=== PATIENT | female | born 1965 | race Caucasian/White ===

== ENCOUNTER 2020-06-26 11:05 | Emergency (ER) | payer OTHER, SELFPAY ==
[2020-06-26 12:57] VITALS: BP 133/76; PULSE 70; RESP 15; TEMP 37.3; O2SAT 99; BMI 30.2
--- NOTE | 2020-06-26 13:09 | CT_ITS ---
EXAMINATION: CT ABDOMEN AND PELVIS WITHOUT CONTRAST CLINICAL INFORMATION: Bilateral flank pain. COMPARISON: January 25, 2020 TECHNIQUE: Multidetector volumetric imaging was performed from the superior aspect of the liver through the pubic symphysis. Sagittal and coronal reformatted images were obtained on the technologist's workstation. This CT examination was performed using dose optimization techniques as appropriate, variously including the following: *Automated exposure control *Adjustment of mA and/or kV according to patient size (this includes techniques or standardized protocols for targeted exams where dose is matched to indication/reason for exam; i.e. extremities or head) *Use of iterative reconstruction technique DLP: 557 mGy-cm FINDINGS: LUNG BASES: The visualized lung bases are unremarkable. No pleural or pericardial effusion. LIVER, GALLBLADDER, AND BILIARY TREE: The liver is normal in size, shape, and attenuation. No focal hepatic lesion or biliary ductal dilatation is present. Status post cholecystectomy. PANCREAS: Unremarkable. SPLEEN: Unremarkable. ADRENAL GLANDS: Unremarkable. KIDNEYS AND URETERS: The kidneys are normal in size, shape, and attenuation. There is a 1.1 cm upper pole cyst of the left kidney. No hydronephrosis, hydroureter, or calculi seen. No perinephric stranding. BLADDER: Unremarkable. GASTROINTESTINAL TRACT: The small and large bowel are unremarkable. No free air or free fluid. The appendix is unremarkable. ABDOMINAL WALL: No significant hernia is appreciated. LYMPH NODES: No lymphadenopathy appreciated. VASCULAR: Unremarkable. PELVIC VISCERA: Unremarkable. OSSEOUS STRUCTURES: There is bilateral sclerosis of the sacroiliac joints without fusion or widening as well as facet arthropathy L5-S1 bilaterally. No suspicious destructive bony lesions. IMPRESSION: 1.1 cm left renal upper pole cyst. No evidence of obstructive uropathy. Bilateral sacroiliac joint sclerosis and facet arthropathy L5-S1.
--- NOTE | 2020-06-26 13:11 | ED_ITS ---
HPI - Abdominal Pain General Chief Complaint: Abdominal Pain Stated Complaint: BACK PAIN, LOWER ABD PAIN Time Seen by Provider: 06/26/20 12:49 Source: patient Mode of arrival: ambulatory Limitations: no limitations History of Present Illness HPI narrative: 55 y/o female presenting with 3 days of lower abdominal pain and low back pain. This is associated with intermittent fever at home and mild discomfort while urinating. She also reports nausea but no vomiting or diarrhea. She has taken Tylenol with no improvement in the pain. MD elicited complaint: abdominal pain and flank pain Onset (ago): day(s) (3) Pain Consistency: constant Location: L flank, R flank and suprapubic Severity: moderate Quality: aching Radiation: suprapubic, L flank and R flank Migration to: no migration Exacerbating factors: nothing Associated symptoms: nausea, fever, chills and dysuria Related Data Previous Rx's Medication Instructions Recorded acetaminophen [Tylenol Arthritis 650 mg PO Q8H PRN #30 tab 06/26/20 Pain] cephalexin [Keflex] 500 mg PO QID #20 cap 06/26/20 cyclobenzaprine 10 mg PO TID PRN #10 tab 06/26/20 Allergies Allergy/AdvReac Type Severity Reaction Status Date / Time No Known Allergies Allergy Verified 06/26/20 13:03 [No Known Allergies*] Review of Systems Review of Systems Constitutional: + Fever, + Chills ENT/Mouth: No sore throat, No Rhinorrhea, No Swallowing Difficulty Eyes: No Eye Pain, No Swelling, No Redness Cardiovascular: No Chest Pain, No SOB, No Orthopnea, No Edema Respiratory: No Cough, No Sputum, No Wheezing, No dyspnea Gastrointestinal: + Nausea, No Vomiting, No Diarrhea, + abdominal Pain, No Hematochezia, No Melena Genitourinary: + Dysuria, No Urinary Frequency, No Hematuria Musculoskeletal: No joint pain, + Myalgias Skin: No Skin Lesions, No rash Neuro: No Weakness, No Numbness, No Dizziness, No Headache Psych: No Anxiety/Panic, No Depression Heme/Lymph: No Bruising, No Lymphadenopathy Endocrine: No Polyuria, No Polydipsia Physical Exam Vital Signs: Vital Signs: Vital Signs Temp Pulse Resp BP Pulse Ox 06/26/20 16:19 98.9 F 74 18 143/85 H 98 06/26/20 12:57 99.2 F 70 15 133/76 99 Body Mass Index 30.2 Appearance: Alert. Oriented X3. No acute distress. Eyes: Pupils equal, round and reactive to light. ENT: Pharynx normal. Neck: Normal inspection. Neck supple. CVS: Normal heart rate and rhythm. Pulses normal. Respiratory: No respiratory distress. Breath sounds normal. Abdomen: Soft, lower abdominal tenderness, bilateral CVA tenderness +BS x4 Skin: Skin warm and dry. Normal skin color. Normal skin turgor. No rashes. Extremities: No lower extremity edema. Neuro: Oriented X 3. No motor deficit. No sensory deficit. Course Course Course Narrative: 55 y/o female with lower abdominal pain, dysuria, bilateral flank pain - concern for possible pyelonephritis, kidney stone, colitis. Reevaluation(s) Reevaluation #1: No fever or elevated WBC. UA still pending. CT scan showed 1 cm left renal upper pole cyst. No evidence of obstructive uropathy. Bilateral sacr oiliac joint sclerosis and facet arthropathy L5-S1. Low back pain is likely due to this. Suspect uncomplicated UTI based on dysuria complaint, awaiting UA. Reevaluation #2: UA positive. will treat with Keflex for uncomplicated UTI. Stable for d/c. MDM - Abdominal Pain MDM Narrative Medical decision making narrative: UTI, pyelo, kidney stones Differential Diagnosis Differential diagnosis: Likely abdominal pain, calculus of kidney, constipation, gastroenteritis, gastritis and small bowel obstruction Lab Data Attestation: I reviewed the patient's lab results. Result diagrams: 06/26/20 13:59 06/26/20 13:59 Labs: Lab Results 06/26/20 06/26/20 06/26/20 Range/Units 13:59 13:59 14:00 WBC 4.0 L (4.8-10.8) X10*3/uL RBC 5.02 (4.20-5.50) X10*6/uL Hgb 13.6 (12.0-16.0) g/dl Hct 40.9 (37-47) % MCV 81.5 (80-98) fL MCH 27.1 (27.0-33.0) pg MCHC 33.3 (31.0-35.0) g/dl RDW 14.3 (11.0-16.0) % Plt Count 268 (160-400) X10*3/uL MPV 11.1 (9.4-12.3) fL Immature Gran % (Auto) 0.5 H (0.0-0.4) % Neut % (Auto) 61.7 (45-73) % Lymph % (Auto) 29.2 (20-40) % [place] % (Auto) 6.2 (2-11) % Eos % (Auto) 1.7 (0-4) % Baso % (Auto) 0.7 (0-2) % Lymph # (Auto) 1.2 (1.2-4.9) X10*3/uL [place] # (Auto) 0.3 (0.1-1.2) X10*3/uL Eos # (Auto) 0.1 (0.0-0.4) X10*3/uL Baso # (Auto) 0.0 (0.0-0.2) X10*3/uL Abs Immat Gran (auto) 0.02 (0.00-0.03) X10*3/uL Absolute Neuts (auto) 2.5 (2.0-8.3) X10*3/uL Absolute Nucleated RBC 0.000 (0.0-0.012) X10*3/uL Nucleated RBC % (auto) 0.0 (0.0-0.2) /100WBC Sodium 138 (135-145) mmol/L Potassium 4.3 (3.3-5.1) mmol/l Chloride 106 (96-108) mmol/L Carbon Dioxide 26 (22-29) mmol/L Anion Gap 10 L (12-20) BUN 13 (9-16) mg/dL Creatinine 0.68 (0.5-1.4) mg/dL Estim Creat Clear Calc 90.6 Estimated GFR > 60 Random Glucose 95 (60-115) mg/dL Calcium 9.0 (8.4-10.2) mg/dL Total Bilirubin 0.3 (0.0-1.0) mg/dL Direct Bilirubin < 0.2 (0.0-0.5) mg/dL AST 14 (5-31) U/L ALT 16 (0-31) U/L Alkaline Phosphatase 80 (39-117) U/L Total Protein 6.7 (6.5-8.0) g/dL Albumin 3.9 (3.5-5.0) g/dL Lipase 7 L (8-78) U/L Urine Color YELLOW Urine Appearance CLEAR Urine pH 6.0 (5.0-8.0) Ur Specific [place] 1.020 (1.005-1.025) Urine Protein NEG (NEG-TRACE) MG/DL Urine Glucose (UA) NEG (NEG) MG/DL Urine Ketones NEG (NEG) MG/DL Urine Blood 1+ H (NEG) Urine Nitrite NEG (NEG) Ur Leukocyte Esterase NEG (NEG) Urine RBC 1-4 (0) /HPF Urine WBC 5-9 H (0-4) /HPF Ur Squamous Epith Cells 1+ /LPF Urine Bacteria 1+ /LPF Discharge Plan Discharge Clinical Impression: UTI (urinary tract infection) Qualifiers: Urinary tract infection type: acute cystitis Hematuria presence: with hematuria Qualified Code(s): N30.01 - Acute cystitis with hematuria Patient Disposition: Home, Self-Care Instructions: Urinary Tract Infection in Women (ED) Additional Instructions: Stay hydrated. No sexual activity until all of your symptoms are resolved. If you have persistent pain/discomfort, fever, chills, nausea or vomiting despite treatment with antibiotics, call 911 or come back to the ER for further evaluation. Follow up with your Primary Care doctor this week. Prescriptions: New cyclobenzaprine 10 mg tablet 10 mg PO TID PRN (Reason: muscle spasm) Qty: 10 RF: 0 acetaminophen [Tylenol Arthritis Pain] 650 mg tablet extended release 650 mg PO Q8H PRN (Reason: pain) Qty: 30 RF: 0 cephalexin [Keflex] 500 mg capsule 500 mg PO QID Qty: 20 RF: 0 Print Language: Azeri [facility] Past Medical History Attestation statement: The following information was validated with the patient. Social History Social History Alcohol intake: never Smoking Status: Never smoker Use of substances other than those prescribed or required for medical reasons: No Advance Directives: No Advance Directives Information Provided: Yes
--- NOTE | 2020-06-26 13:44 | PC.NURSE ---
THIS RN INTO [facility], PT AT CT SCAN.
[2020-06-26] MEDS: 0.9 % Sodium Chloride 1,000 ML 999 ML IVCONT (14:04)
[2020-06-26] MEDS: ondansetron HCL 4 MG/2 ML VIAL IVPUSH (14:04)
[2020-06-26] MEDS: Ketorolac Tromethamine 15 MG/ML VIAL IM (14:04)
[2020-06-26 14:06] LABS: MANUAL DIFF FLAG NO
[2020-06-26 14:09] LABS: Basophils Percent Auto 0.7 % (0-2); Eosinophils Absolute Auto 0.1 X10*3/uL (0.0-0.4); Eosinophils Percent Auto 1.7 % (0-4); Hematocrit 40.9 % (37-47); Hemoglobin 13.6 g/dl (12.0-16.0); Imm Gran Abs Auto 0.02 X10*3/uL (0.00-0.03); Imm Gran Pct Auto 0.5 % (0.0-0.4); Lymphocytes Absolute Auto 1.2 X10*3/uL (1.2-4.9); Lymphocytes Percent Auto 29.2 % (20-40); Mean Corpuscular HGB Conc 33.3 g/dl (31.0-35.0); Mean Corpuscular Hemoglobin 27.1 pg (27.0-33.0); Mean Corpuscular Volume 81.5 fL (80-98); Mean Platelet Volume 11.1 fL (9.4-12.3); Monocytes Absolute Auto 0.3 X10*3/uL (0.1-1.2); Monocytes Percent Auto 6.2 % (2-11); Neutrophils Absolute Auto 2.5 X10*3/uL (2.0-8.3); Neutrophils Percent Auto 61.7 % (45-73); Platelet Count 268 X10*3/uL (160-400); Red Blood Count 5.02 X10*6/uL (4.20-5.50); Red Cell Distribution Width 14.3 % (11.0-16.0)
[2020-06-26 14:38] LABS: Alanine Aminotransferase 16 U/L (0-31); Albumin Level 3.9 g/dL (3.5-5.0); Alkaline Phosphatase 80 U/L (39-117); Anion Gap 10 (12-20); Aspartate Amino Transferase 14 U/L (5-31); Bilirubin Direct < 0.2 mg/dL (0.0-0.5); Bilirubin Total 0.3 mg/dL (0.0-1.0); Blood Urea Nitrogen 13 mg/dL (9-16); Carbon Dioxide 26 mmol/L (22-29); Chloride 106 mmol/L (96-108); Creatinine Clr Calc Pharmacy 90.6; Estimated Glomerular Filt Rate > 60; Glucose Random 95 mg/dL (60-115); Lipase 7 U/L (8-78); Potassium 4.3 mmol/l (3.3-5.1); Sodium 138 mmol/L (135-145); Total Protein 6.7 g/dL (6.5-8.0)
[2020-06-26 14:39] LABS: Glucose Urine UA NEG (NEG); Leukocyte Esterase Urine NEG (NEG); Nitrite Urine NEG (NEG); Urine Blood 1+ (NEG); Urine Ketones NEG (NEG); Urine Protein NEG (NEG-TRACE)
[2020-06-26 14:41] LABS: Appearance Urine CLEAR; Color Urine YELLOW
[2020-06-26 14:55] LABS: Bacteria Urine 1+ /LPF; Squamous Epithelial Cell Urine 1+ /LPF; UACC CULT YES
[2020-06-26 16:19] VITALS: BP 143/85; PULSE 74; RESP 18; TEMP 37.2; O2SAT 98
== END 2020-06-26 16:47 | disposition home or self-care (01) ==
PROVIDERS: Physician Assistant; Emergency Provider Emergency Medicine
DX: N30.01 Acute cystitis with hematuria (principal); M54.5 Low back pain
CPT/HCPCS: 36415; 74176; 80048; 80076; 81001; 83690; 85025; 87086; 96361; 96372; 96374; 99284; J1885; J2405

== ENCOUNTER 2021-02-18 09:47 | Emergency (ER) | payer MEDICAID, SELFPAY ==
[2021-02-18 10:12] VITALS: BP 175/83; PULSE 72; RESP 17; TEMP 36.6; O2SAT 98; BMI 28.9
[2021-02-18 11:24] VITALS: BP 167/90; PULSE 66; O2SAT 97
[2021-02-18 11:52] LABS: Glucose Urine UA NEG (NEG); Leukocyte Esterase Urine 1+ (NEG); Nitrite Urine NEG (NEG); Urine Blood TRACE (NEG); Urine Ketones NEG (NEG); Urine Protein NEG (NEG-TRACE)
[2021-02-18 11:54] LABS: Appearance Urine HAZY; Color Urine YELLOW
[2021-02-18 11:55] LABS: UPreg QC Valid YES; Urine Pregnancy NEGATIVE (NEGATIVE)
[2021-02-18 11:58] LABS: MANUAL DIFF FLAG NO
[2021-02-18 12:00] LABS: Basophils Percent Auto 0.7 % (0-2); Eosinophils Absolute Auto 0.1 X10*3/uL (0.0-0.4); Eosinophils Percent Auto 2.1 % (0-4); Hematocrit 41.2 % (37-47); Hemoglobin 13.8 g/dl (12.0-16.0); Imm Gran Abs Auto 0.03 X10*3/uL (0.00-0.03); Imm Gran Pct Auto 0.7 % (0.0-0.4); Lymphocytes Absolute Auto 1.3 X10*3/uL (1.2-4.9); Lymphocytes Percent Auto 29.7 % (20-40); Mean Corpuscular HGB Conc 33.5 g/dl (31.0-35.0); Mean Corpuscular Hemoglobin 27.9 pg (27.0-33.0); Mean Corpuscular Volume 83.2 fL (80-98); Mean Platelet Volume 11.1 fL (9.4-12.3); Monocytes Absolute Auto 0.3 X10*3/uL (0.1-1.2); Monocytes Percent Auto 7.8 % (2-11); Neutrophils Absolute Auto 2.6 X10*3/uL (2.0-8.3); Platelet Count 272 X10*3/uL (160-400); Red Blood Count 4.95 X10*6/uL (4.20-5.50); Red Cell Distribution Width 13.7 % (11.0-16.0); White Blood Count 4.4 X10*3/uL (4.8-10.8)
[2021-02-18 12:09] LABS: Mucus Urine 1+ /LPF; Renal Epithelial Cells Urine 1+ /LPF; Squamous Epithelial Cell Urine 3+ /LPF; Trichomonas Urine NOTED
[2021-02-18 12:26] LABS: Anion Gap 11 (12-20); Blood Urea Nitrogen 9 mg/dL (9-16); Calcium 9.4 mg/dL (8.4-10.2); Carbon Dioxide 25 mmol/L (22-29); Chloride 109 mmol/L (96-108); Creatinine Clr Calc Pharmacy 84.2; Estimated Glomerular Filt Rate > 60; Glucose Random 91 mg/dL (60-115); Potassium 4.2 mmol/L (3.3-5.1); Sodium 141 mmol/L (135-145)
--- NOTE | 2021-02-18 12:27 | ED_ITS ---
HPI - General Adult General Chief complaint: General Medical Stated complaint: back pain hip pain Time Seen by Provider: 02/18/21 12:27 Source: patient Mode of arrival: ambulatory Limitations: language barrier History of Present Illness HPI narrative: history taken by return agent. Patient was on abx for UTI. yester day patient had urinary frequency and small amounts. Denies fever, chill, diarrhea Onset (ago): day(s) Radiation: non-radiation Severity: mild Quality: burning Pain Consistency: intermittent Related Data Previous Rx's Medication Instructions Recorded acetaminophen [Tylenol Arthritis 650 mg PO Q8H PRN #30 tab 06/26/20 Pain] cephalexin [Keflex] 500 mg PO QID #20 cap 06/26/20 cyclobenzaprine 10 mg PO TID PRN #10 tab 06/26/20 cephalexin 500 mg PO QID #20 cap 02/18/21 Allergies Allergy/AdvReac Type Severity Reaction Status Date / Time No Known Allergies Allergy Verified 06/26/20 13:03 [No Known Allergies*] Review of Systems Constitutional: Constitutional: Reports no additional constitutional complaints Eyes: Eyes: Reports no additional eye complaints ENT: Denies dizziness Cardiovascular: Cardiovascular: Reports no additional cardiovascular complaints Respiratory: Respiratory: Reports as per HPI Gastrointestinal: Gastrointestinal: Reports no additional gastrointestinal complaints Genitourinary: Genitourinary: Reports no additional female genitourinary complaints Musculoskeletal: Musculoskeletal: Reports no additional musculoskeletal complaints Integumentary/Breasts: Skin/Breast: Denies rash Neurologic: Reports system reviewed and no additional complaints, except as documented, Denies dizziness and Denies Sensory deficit (Neuro) Psychiatric: Psychiatric: Denies anxiety [facility] Social History Social History Alcohol intake: never Patient Tobacco Use Status: Never used Tobacco Use of substances other than those prescribed or required for medical reasons: No Advance Directives: No Advance Directives Information Provided: No Patient : No Physical Exam Vital Signs: Vital Signs: Last Vital Signs Temp 98 F 02/18/21 10:12 Pulse 66 02/18/21 11:24 Resp 18 02/18/21 12:28 BP 167/90 H 02/18/21 11:24 Pulse Ox 98 02/18/21 12:28 Body Mass Index 28.9 Const: General: healthy appearing Nutritional Appearance: average body habitus Orientation/consciousness: oriented to person and patient oriented x3 Limitations: no limitations HENMT: Head: Yes normal to inspection Ears: external ears normal General nose exam: Normal external nose present Mouth: Normal oral and palatal mucosa present and oropharynx normal Throat: Yes posterior oropharynx normal Eyes: General: appearance normal, both eyes and all related structures Neck: Other: supple Neck: Yes normal visual inspection Chest: Chest palpation & inspection: normal inspection of the chest Resp: Auscultation: clear to auscultation bilaterally Cardio: Jugular venous distension: no JVD Rate: regular rate Rhythm: regular rhythm Heart sounds: S1 normal heart sound present and S2 normal heart sound present GI: Inspection: Yes normal to inspection Palpation (GI): Soft to palpation, nontender and No hepatosplenomegaly present Auscultation: normal bowel sounds : General: Yes no CVA tenderness Back/Spine/Pelvis: Back: no CVA tenderness Skin: General skin exam: no rashes or lesions noted Neuro: General: oriented to person and patient oriented x3 Cranial nerves: Yes CN's II-XII intact bilaterally Motor exam (neuro): 5/5 motor strength present throughout Sensory Exam: No Sensory deficit (Neuro) Extrem: General: Yes normal to inspection Psych: Appearance: grossly normal Course Reevaluation(s) Reevaluation #1: blood work normal, UA with WBC, patient nontoxic, no CVAT will dc on keflex for uti Time: 12:37 Medical Decision Making Lab Data Result diagrams: 02/18/21 11:49 02/18/21 11:49 Labs: Lab Results 02/18/21 02/18/21 02/18/21 Range/Units 11:34 11:34 11:49 WBC 4.4 L (4.8-10.8) X10*3/uL RBC 4.95 (4.20-5.50) X10*6/uL Hgb 13.8 (12.0-16.0) g/dl Hct 41.2 (37-47) % MCV 83.2 (80-98) fL MCH 27.9 (27.0-33.0) pg MCHC 33.5 (31.0-35.0) g/dl RDW 13.7 (11.0-16.0) % Plt Count 272 (160-400) X10*3/uL MPV 11.1 (9.4-12.3) fL Immature Gran % (Auto) 0.7 H (0.0-0.4) % Neut % (Auto) 59.0 (45-73) % Lymph % (Auto) 29.7 (20-40) % [place] % (Auto) 7.8 (2-11) % Eos % (Auto) 2.1 (0-4) % Baso % (Auto) 0.7 (0-2) % Lymph # (Auto) 1.3 (1.2-4.9) X10*3/uL [place] # (Auto) 0.3 (0.1-1.2) X10*3/uL Eos # (Auto) 0.1 (0.0-0.4) X10*3/uL Baso # (Auto) 0.0 (0.0-0.2) X10*3/uL Abs Immat Gran (auto) 0.03 (0.00-0.03) X10*3/uL Absolute Neuts (auto) 2.6 (2.0-8.3) X10*3/uL Absolute Nucleated RBC 0.000 (0.0-0.012) X10*3/uL Nucleated RBC % (auto) 0.0 (0.0-0.2) /100WBC Sodium (135-145) mmol/L Potassium (3.3-5.1) mmol/L Chloride (96-108) mmol/L Carbon Dioxide (22-29) mmol/L Anion Gap (12-20) BUN (9-16) mg/dL Creatinine (0.5-1.4) mg/dL Estim Creat Clear Calc Estimated GFR Random Glucose (60-115) mg/dL Calcium (8.4-10.2) mg/dL Urine Color YELLOW Urine Appearance HAZY Urine pH 6.0 (5.0-8.0) Ur Specific [place] 1.010 (1.005-1.025) Urine Protein NEG (NEG-TRACE) MG/DL Urine Glucose (UA) NEG (NEG) MG/DL Urine Ketones NEG (NEG) MG/DL Urine Blood TRACE (NEG) Urine Nitrite NEG (NEG) Ur Leukocyte Esterase 1+ H (NEG) Urine RBC 1-4 (0) /HPF Urine WBC 15-29 H (0-4) /HPF Ur Squamous Epith Cells 3+ /LPF Ur Renal Epithelial Cell 1+ /LPF Urine Bacteria NONE /LPF Urine Mucus 1+ /LPF Urine Trichomonas NOTED Urine Test NEGATIVE (NEGATIVE) 02/18/21 Range/Units 11:49 WBC (4.8-10.8) X10*3/uL RBC (4.20-5.50) X10*6/uL Hgb (12.0-16.0) g/dl Hct (37-47) % MCV (80-98) fL MCH (27.0-33.0) pg MCHC (31.0-35.0) g/dl RDW (11.0-16.0) % Plt Count (160-400) X10*3/uL MPV (9.4-12.3) fL Immature Gran % (Auto) (0.0-0.4) % Neut % (Auto) (45-73) % Lymph % (Auto) (20-40) % [place] % (Auto) (2-11) % Eos % (Auto) (0-4) % Baso % (Auto) (0-2) % Lymph # (Auto) (1.2-4.9) X10*3/uL [place] # (Auto) (0.1-1.2) X10*3/uL Eos # (Auto) (0.0-0.4) X10*3/uL Baso # (Auto) (0.0-0.2) X10*3/uL Abs Immat Gran (auto) (0.00-0.03) X10*3/uL Absolute Neuts (auto) (2.0-8.3) X10*3/uL Absolute Nucleated RBC (0.0-0.012) X10*3/uL Nucleated RBC % (auto) (0.0-0.2) /100WBC Sodium 141 (135-145) mmol/L Potassium 4.2 (3.3-5.1) mmol/L Chloride 109 H (96-108) mmol/L Carbon Dioxide 25 (22-29) mmol/L Anion Gap 11 L (12-20) BUN 9 (9-16) mg/dL Creatinine 0.66 (0.5-1.4) mg/dL Estim Creat Clear Calc 84.2 Estimated GFR > 60 Random Glucose 91 (60-115) mg/dL Calcium 9.4 (8.4-10.2) mg/dL Urine Color Urine Appearance Urine pH (5.0-8.0) Ur Specific [place] (1.005-1.025) Urine Protein (NEG-TRACE) MG/DL Urine Glucose (UA) (NEG) MG/DL Urine Ketones (NEG) MG/DL Urine Blood (NEG) Urine Nitrite (NEG) Ur Leukocyte Esterase (NEG) Urine RBC (0) /HPF Urine WBC (0-4) /HPF Ur Squamous Epith Cells /LPF Ur Renal Epithelial Cell /LPF Urine Bacteria /LPF Urine Mucus /LPF Urine Trichomonas Urine Test (NEGATIVE) Discharge Plan Discharge Clinical Impression: Urinary tract infection Qualifiers: Urinary tract infection type: acute cystitis Hematuria presence: without hematuria Qualified Code(s): N30.00 - Acute cystitis without hematuria Patient Disposition: Home, Self-Care Instructions: Urinary Tract Infection in Women (ED) Prescriptions: New cephalexin 500 mg capsule 500 mg PO QID Qty: 20 RF: 0 No Action cyclobenzaprine 10 mg tablet 10 mg PO TID PRN (Reason: muscle spasm) Qty: 10 RF: 0 acetaminophen [Tylenol Arthritis Pain] 650 mg tablet extended release 650 mg PO Q8H PRN (Reason: pain) Qty: 30 RF: 0 cephalexin [Keflex] 500 mg capsule 500 mg PO QID Qty: 20 RF: 0 Referrals: Physician,None [Primary Care Provider] - 1 week
[2021-02-18 12:28] VITALS: RESP 18; O2SAT 98
[2021-02-18] MEDS: cephALEXin 500 MG CAPSULE PO (12:49)
== END 2021-02-18 12:59 | disposition home or self-care (01) ==
PROVIDERS: Emergency Provider Emergency Medicine
DX: N30.00 Acute cystitis without hematuria (principal)
CPT/HCPCS: 36415; 80048; 81001; 81025; 85025; 99283; 99284

== ENCOUNTER 2021-08-04 09:53 | Emergency (ER) | payer OTHER, SELFPAY ==
[2021-08-04 10:39] VITALS: BP 137/87; PULSE 72; RESP 16; TEMP 37; O2SAT 98; BMI 35.2
--- NOTE | 2021-08-04 11:43 | ED.HA ---
HPI - Headache General Chief Complaint: Headache Stated Complaint: migraine Time Seen by Provider: 08/04/21 11:30 Source: patient Mode of arrival: ambulatory Limitations: no limitations History of Present Illness HPI Narrative: 56 y/o female with history of obesity, HTN and migraines presents to the ER for evaluation of a migraine headache for the last 2 days. She states its been a while since she had her last migraine but this feels similar. She reports associated dizziness and nausea. No vomiting, no vision changes, weakness, numbness. she usually takes Tylenol for her migraines which usually works but this time it did not. She states the pain comes and goes and is located throughout her whole head. It does not radiate. No neck pain, no fevers, no injury. MD elicited complaint: migraine Pertinent past history: migraines Onset (ago): day(s) (2) Onset description: gradually Location: generalized Severity: moderate Quality & Timing: throbbing Exacerbating factors: none Relieving factors: nothing Associated symptoms: nausea, photophobia and sensitivity to sound Treatments prior to arrival: acetaminophen Related Data Previous Rx's Medication Instructions Recorded acetaminophen 650 mg 650 mg PO Q8H PRN #30 tab 06/26/20 tablet,extended release (Tylenol Arthritis Pain) cyclobenzaprine 10 mg tablet 10 mg PO TID PRN #10 tab 06/26/20 cephalexin 500 mg capsule 500 mg PO QID #20 cap 02/18/21 amlodipine 5 mg tablet 5 mg PO DAILY 30 Days #30 tab 07/02/21 [id number]-vfvphendfitln-nruluypi 1 tab PO Q6H PRN #10 tab 08/04/21 50 mg-325 mg-40 mg tablet Allergies Allergy/AdvReac Type Severity Reaction Status Date / Time No Known Allergies Allergy Verified 07/02/21 15:22 [No Known Allergies*] Review of Systems Review of Systems: Constitutional: No Fever, No Chills ENT/Mouth: No sore throat, No Rhinorrhea, No Swallowing Difficulty Eyes: No Eye Pain, No Swelling, No Redness, No vision changes Cardiovascular: No Chest Pain, No SOB Gastrointestinal: + Nausea, No Vomiting, No Diarrhea, No abdominal Pain Musculoskeletal: No joint pain, No Myalgias Skin: No Skin Lesions, No rash Neuro: No Weakness, No Numbness, + Dizziness, + Headache Heme/Lymph: No Bruising, No Lymphadenopathy PMFSH Family History Family History (Updated 07/02/21 @ 15:29 by Rad Freeman PA-C) Sister Heart attack, Onset Age: 50 Social History Social History Housing: Apartment Alcohol intake: never Patient Tobacco Use Status: Never used Tobacco e-Cigarette/Vaping Use: Never Used Second Hand Smoke Exposure: No Advance Directives: No Patient : No service: No Current occupational status: unemployed Physical Exam Vital Signs: Vital Signs: Last Vital Signs Temp 98.1 F 08/04/21 12:24 Pulse 63 08/04/21 12:24 Resp 18 08/04/21 12:24 BP 140/77 H 08/04/21 12:24 Pulse Ox 98 08/04/21 12:24 Body Mass Index 35.2 Appearance: Alert. Oriented X3. No acute distress. Eyes: Pupils equal, round and reactive to light. ENT: Pharynx normal. Neck: Normal inspection. Neck supple. CVS: Normal heart rate and rhythm. Pulses normal. Respiratory: No respiratory distress. Breath sounds normal. Abdomen: Soft and nontender. +BS x4 Skin: Skin warm and dry. Normal skin color. Normal skin turgor. No rashes. Extremities: No lower extremity edema. Neuro: Oriented X 3. No motor deficit. No sensory deficit. Course Course Course Narrative: 56-year-old female with history of migraine headaches present to the ER with 2 days of pressure like migraine. Similar to her previous migraines. Neuro exam is nonfocal. She appears comfortable. Will treat with IV Reglan, Toradol and Benadryl and reassess. Reevaluation(s) Reevaluation #1: Patient's headache is significantly improved. She is stable for discharge home with supportive care. Will give her a script for a trial of Fioricet. Discharge Plan Discharge Clinical Impression: Migraine Qualifiers: Migraine type: unspecified Status migrainosus presence: without status migrainosus Intractability: not intractable Qualified Code(s): G43.909 - Migraine, unspecified, not intractable, without status migrainosus Patient Disposition: Home, Self-Care Instructions: Migraine Headache (ED) Prescriptions: New [id number]-ohchhtzgzdqew-shky 50-325-40 mg tablet 1 tab PO Q6H PRN (Reason: headhace) Qty: 10 RF: 0 No Action cephalexin 500 mg capsule 500 mg PO QID Qty: 20 RF: 0 cyclobenzaprine 10 mg tablet 10 mg PO TID PRN (Reason: muscle spasm) Qty: 10 RF: 0 acetaminophen [Tylenol Arthritis Pain] 650 mg tablet extended release 650 mg PO Q8H PRN (Reason: pain) Qty: 30 RF: 0 amlodipine 5 mg tablet 5 mg PO DAILY 30 Days Qty: 30 RF: 2 Print Language: Slovenian
[2021-08-04] MEDS: Metoclopramide HCl 10 MG/2 ML VIAL IVPUSH (11:50)
[2021-08-04] MEDS: diphenhydrAMINE HCL 50 MG/ML VIAL 25 MG IVPUSH (11:50)
[2021-08-04] MEDS: Ketorolac Tromethamine 15 MG/ML VIAL 30 MG IVPUSH (11:51)
[2021-08-04] MEDS: 0.9 % Sodium Chloride 1,000 ML 999 ML IVCONT (11:53)
[2021-08-04 12:24] VITALS: BP 140/77; PULSE 63; RESP 18; TEMP 36.7; O2SAT 98
== END 2021-08-04 13:17 | disposition home or self-care (01) ==
PROVIDERS: Emergency Provider Emergency Medicine; PCP Physician Assistant
DX: G43.909 Migraine, unspecified, not intractable, without status migrainosus (principal); I10 Essential (primary) hypertension; Z79.899 Other long term (current) drug therapy
CPT/HCPCS: 96361; 96374; 96375; 99284; J1200; J1885; J2765

== ENCOUNTER 2021-08-04 13:42 | Outpatient (REF) | payer OTHER, SELFPAY ==
[2021-08-04 15:09] LABS: Estimated Average Glucose 128 mg/dL; Hemoglobin A1c % 6.1 %
[2021-08-04 15:10] LABS: Alanine Aminotransferase 29 U/L (0-31); Albumin Level 4.1 g/dL (3.5-5.0); Alkaline Phosphatase 82 U/L (39-117); Anion Gap 14 (12-20); Aspartate Amino Transferase 16 U/L (5-31); Bilirubin Total 0.2 mg/dL (0.0-1.0); Blood Urea Nitrogen 6 mg/dL (9-16); Calcium 9.3 mg/dL (8.4-10.2); Carbon Dioxide 24 mmol/L (22-29); Chloride 106 mmol/L (96-108); Cholesterol 182 mg/dL; Estimated Glomerular Filt Rate > 60; Glucose Fasting 101 mg/dL (60-99); HDL Cholesterol 40 mg/dL; LDL Cholesterol Calculated 98 mg/dl; Potassium 3.9 mmol/L (3.3-5.1); Sodium 140 mmol/L (135-145); Total Protein 6.8 g/dL (6.5-8.0); Triglycerides 221 mg/dL
[2021-08-04 15:11] LABS: Appearance Urine HAZY; Color Urine YELLOW; Glucose Urine UA NEG (NEG); Leukocyte Esterase Urine TRACE (NEG); Nitrite Urine NEG (NEG); UACC Culture Trigger YES; Urine Blood TRACE (NEG); Urine Ketones NEG (NEG); Urine Protein NEG (NEG-TRACE)
[2021-08-04 15:14] LABS: Creatinine Urine 80.26 mg/dL; Microalbum/Creatinine Ratio Ur 23.6 ug/mg cr
[2021-08-04 15:33] LABS: TSH reflex Free T4 2.23 uIU/mL (0.32-4.0)
[2021-08-04 15:52] LABS: Trichomonas Urine NOTED
[2021-08-04 15:54] LABS: Squamous Epithelial Cell Urine 4+ /LPF
[2021-08-04 15:55] LABS: Bacteria Urine 2+ /LPF; WBC Clumps Urine NOTED
== END 2021-08-04 13:43 | disposition home or self-care (01) ==
LOC: HO.LAB 13:42
PROVIDERS: Visit Provider Physician Assistant
DX: I10 Essential (primary) hypertension (principal); E66.01 Morbid (severe) obesity due to excess calories; Z68.36 Body mass index [BMI] 36.0-36.9, adult
CPT/HCPCS: 36415; 80053; 80061; 81001; 81003; 82043; 83036; 84443; 87086

== ENCOUNTER 2021-08-06 13:21 | Outpatient (REF) | payer OTHER, SELFPAY ==
--- NOTE | ~2021-08-06 | MM_ITS ---
EXAMINATION: MM SCREENING DIGITAL BREAST TOMOSYNTHESIS, BILATERAL CLINICAL INFORMATION: Screening. Asymptomatic. No prior breast imaging. Age 56. No known family history breast cancer. The lifetime risk of breast cancer based on the Tyrer-Cuzick Model is 7%. COMPARISON: None (current study represents initial baseline exam). TECHNIQUE: Digital breast tomosynthesis is performed in both the craniocaudal and mediolateral oblique views along with computer-aided detection (CAD). Synthesized 2D images are generated from the tomosynthesis. Additional exaggerated right CC and additional left MLO views are provided. FINDINGS: There are scattered areas of fibroglandular density (ACR BI-RADS breast composition Category b). There is a fine fibronodular parenchymal pattern. No dominant nodularity or significant mass. No architectural abnormality. There are scattered bilateral punctate and rim and vascular calcifications. Probable early ductal secretory calcification also noted mid 9:00 right breast. The axilla and skin contours are unremarkable. MM/MM tomosynthesis screening BI IMPRESSION: No mammographic evidence of malignancy. ASSESSMENT: BI-RADS 2: Benign RECOMMENDATION: Routine annual mammography screening. This patient's information was entered into a reminder system with a target due date for their next mammogram.
== END 2021-08-06 13:22 | disposition home or self-care (01) ==
LOC: HO.MAMMO 13:21
PROVIDERS: PCP Physician Assistant; Visit Provider Physician Assistant
DX: Z12.31 Encounter for screening mammogram for malignant neoplasm of breast (principal)
CPT/HCPCS: 77063; 77067

== ENCOUNTER 2021-11-04 14:46 | Outpatient (REF) | payer OTHER, SELFPAY ==
[2021-11-05 16:48] LABS: H Pylori Breath Test Positive (Negative)
== END 2021-11-04 14:47 | disposition home or self-care (01) ==
LOC: HO.LNP 14:46
PROVIDERS: PCP Physician Assistant; Referring Provider Physician Assistant; Visit Provider Nurse Practitioner Family
DX: R19.7 Diarrhea, unspecified (principal); R14.0 Abdominal distension (gaseous); R10.11 Right upper quadrant pain; I10 Essential (primary) hypertension; R73.02 Impaired glucose tolerance (oral); Z11.0 Encounter for screening for intestinal infectious diseases
CPT/HCPCS: 83013; 99202

== ENCOUNTER 2022-01-18 09:42 | Emergency (ER) | payer OTHER, SELFPAY ==
--- NOTE | ~2022-01-18 | CT_ITS ---
EXAMINATION: CT ABDOMEN AND PELVIS WITHOUT CONTRAST CLINICAL INFORMATION: Abdominal pain. Evaluate for kidney stones or colitis. COMPARISON: Previous CT of the abdomen and pelvis June 2020 TECHNIQUE: Multidetector volumetric imaging was performed from the superior aspect of the liver through the pubic symphysis. Sagittal and coronal reformatted images were obtained on the technologist's workstation. This CT examination was performed using dose optimization techniques as appropriate, variously including the following: *Automated exposure control *Adjustment of mA and/or kV according to patient size (this includes techniques or standardized protocols for targeted exams where dose is matched to indication/reason for exam; i.e. extremities or head) *Use of iterative reconstruction technique DLP: 735 mGy-cm FINDINGS: LUNG BASES: The visualized lung bases are unremarkable. LIVER, GALLBLADDER, AND BILIARY TREE: The liver is normal in size, shape, and attenuation. No focal hepatic lesion or biliary ductal dilatation is present. The gallbladder has been removed. PANCREAS: Unremarkable. SPLEEN: Unremarkable. ADRENAL GLANDS: Unremarkable. KIDNEYS AND URETERS: The kidneys are normal in size, shape, and attenuation. No hydronephrosis, hydroureter, or calculi seen. There is a 2 cm cyst in the upper pole of the left kidney. No imaging follow-up needed.. BLADDER: Unremarkable. GASTROINTESTINAL TRACT: The small and large bowel are unremarkable. The appendix is unremarkable. ABDOMINAL WALL: There is diastasis of the rectus muscles and small umbilical hernia containing fat. LYMPH NODES: Normal. VASCULAR: Unremarkable. PELVIC VISCERA: There is a 2.5 x 3.5 cm left ovarian cyst. OSSEOUS STRUCTURES: There are degenerative changes of the spine. There is increased sclerosis sacroiliac joints similar to previous exam. CT/CT abdomen pelvis wo con IMPRESSION: No acute findings. Small left renal cyst. 2.5 x 3.5 cm left ovarian cyst. This could be better evaluated with pelvic ultrasound if clinically indicated. Fleischner guidelines were followed.
[2022-01-18 10:19] VITALS: BP 150/84; PULSE 71; RESP 16; TEMP 36.1; O2SAT 99; BMI 35.2
[2022-01-18 12:00] VITALS: BP 151/90; PULSE 74; RESP 18; TEMP 36.1; O2SAT 97
--- NOTE | 2022-01-18 12:13 | ED_ITS ---
HPI - Abdominal Pain General Chief Complaint: Abdominal Pain Stated Complaint: lower abd pain Time Seen by Provider: 01/18/22 11:51 Source: patient Mode of arrival: ambulatory Limitations: no limitations History of Present Illness HPI narrative: 56 yold female with pmh of DM and HTN presents for lower abdominal pain, and dysuria. Patient states mild nausea but no emesis. Patient denies any constipation, blood in stool, diarrhea, upper abdominal pain, chest pain, shortness of breath, fever, or chills. Patient states history of recurrent UTIs. Patient denies any history of STDs and denies any vaginal discharge or vaginal lesions or rough sex. Patient states she is in the faithful relationship with . Related Data Previous Rx's Medication Instructions Recorded acetaminophen 650 mg 650 mg PO Q8H PRN #30 tab 06/26/20 tablet,extended release (Tylenol Arthritis Pain) lonkhvzwjw-uvissllmfxvns-goacriru 1 tab PO Q6H PRN #10 tab 09/03/21 50 mg-325 mg-40 mg tablet cyclobenzaprine 10 mg tablet 10 mg PO TID PRN #10 tab 09/03/21 nitrofurantoin macrocrystal 50 mg 50 mg PO BEDTIME 30 Days #30 cap 09/03/21 capsule metformin 500 mg tablet 500 mg PO DAILY #90 tab 10/28/21 methylcellulose (laxative) 500 mg 500 mg PO DAILY #30 tab 11/04/21 tablet (Citrucel) sennosides 8.6 mg tablet (Natural 8.6 mg PO BEDTIME #30 tab 11/04/21 Senna Laxative) bismuth subsalicylate 262 mg 2 tab PO QID 14 Days #112 tab 11/08/21 chewable tablet metronidazole 500 mg tablet 1,000 mg PO BID #56 tab 11/08/21 pantoprazole 40 mg tablet,delayed 40 mg PO DAILY #60 tab 11/08/21 release tetracycline 500 mg capsule 1,000 mg PO Q12H #56 cap 11/08/21 amlodipine 5 mg tablet 5 mg PO DAILY 30 Days #30 tab 01/01/22 naproxen 500 mg tablet 500 mg PO BID PRN 10 Days #20 tab 01/18/22 nitrofurantoin 100 mg PO Q12H 7 Days #14 cap 01/18/22 monohydrate/macrocrystals 100 mg capsule (Macrobid) phenazopyridine 100 mg tablet 200 mg PO TID PRN #6 tab 01/18/22 (Pyridium) Allergies Allergy/AdvReac Type Severity Reaction Status Date / Time No Known Allergies Allergy Verified 11/04/21 14:52 [No Known Allergies*] Review of Systems Review of Systems Lower abdominal pain Yes all other systems are reviewed and are negative [facility] Family History Family History Sister Heart attack, Onset Age: 50 Mother DMII (diabetes mellitus, type 2) Social History Social History Housing: Apartment Alcohol intake: never Patient Tobacco Use Status: Never used Tobacco e-Cigarette/Vaping Use: Never Used Second Hand Smoke Exposure: No Advance Directives: No Advance Directives Information Provided: No service: No Current occupational status: unemployed Physical Exam ED Vital Signs: Vital Signs - 24 hr 01/18/22 10:19 01/18/22 12:00 Temperature 97 F 97 F Pulse Rate 71 74 Respiratory Rate 16 18 Blood Pressure 150/84 H 151/90 H Pulse Oximetry 99 97 BMI result Body Mass Index 35.2 Const General: cooperative, healthy appearing, comfortable, no acute distress, well developed, alert, awake and Physically active Orientation/consciousness: patient oriented x3 HENMT Head: Yes normal to inspection, Yes No palpable skull fracture present, Yes normocephalic, Yes atraumatic and No abrasion Eyes General: appearance normal, both eyes and all related structures Neck Neck: Yes normal visual inspection, Yes full ROM, Yes no lymphadenopathy, Yes no meningeal signs, Yes trachea midline, No supple and No tender Chest Chest palpation & inspection: normal inspection of the chest and normal palpation of entire chest wall Resp Effort & Inspection: normal respiratory effort and able to speak in complete sentences Auscultation: clear to auscultation bilaterally Cardio Jugular venous distension: no JVD Heart sounds: S1 normal heart sound present and S2 normal heart sound present GI Inspection: Yes normal to inspection and No abdominal wall ecchymosis Palpation (GI): Tenderness to palpation present (GI) in the LLQ and suprapubicly, no guarding and not rigid General: No CVA tenderness and Yes no CVA tenderness Back/Spine/Pelvis Back: no CVA tenderness, No CVA tenderness and No back tenderness Skin General skin exam: no rashes or lesions noted and elasticity normal Neuro General: patient oriented x3, gait normal, no meningeal signs and CN's II-XI intact bilaterally Cranial nerves: Yes CN's II-XII intact bilaterally Extrem General: Yes normal to inspection and Yes full ROM Psych Appearance: grossly normal, well kempt and not disheveled Course Course Course Narrative: Labs urine ordered Reevaluation(s) Reevaluation #1: Patient labs came back normal. Patient UA shows white blood cell count with negative nitrates and leukocyte esterase. Abdominal CT scan shows left ovarian cyst. Patient presents not in severe distress and is comfortable watching television. Patient states pain resolved with Toradol. Not suspecting tubo- ovarian abscess or torsion. Will discharge with pain medication. Patient will be discharged with Pyridium and antibiotics pending urine culture due to patient having white blood cell count and white blood cell clumps in urine with dyruia. Urine culture pending. Time: 15:40 MDM - Abdominal Pain MDM Narrative Medical decision making narrative: Ovarian cyst. Dysuria Lab Data Result diagrams: 01/18/22 12:13 01/18/22 14:28 Labs: Lab Results 01/18/22 01/18/22 01/18/22 Range/Units 12:13 12:13 14:28 WBC 6.3 (4.8-10.8) X10*3/uL RBC 4.88 (4.20-5.50) X10*6/uL Hgb 13.3 (12.0-16.0) g/dl Hct 39.6 (37.0-47.0) % MCV 81.1 (80.0-98.0) fL MCH 27.3 (27.0-33.0) pg MCHC 33.6 (31.0-35.0) g/dl RDW 14.3 (11.0-16.0) % Plt Count 330 (160-400) X10*3/uL MPV 10.8 (9.4-12.3) fL Immature Gran % (Auto) 0.8 H (0.0-0.4) % Neut % (Auto) 65.4 (45-73) % Lymph % (Auto) 24.3 (20-40) % [place] % (Auto) 7.8 (2-11) % Eos % (Auto) 1.1 (0-4) % Baso % (Auto) 0.6 (0-2) % Lymph # (Auto) 1.5 (1.2-4.9) X10*3/uL [place] # (Auto) 0.5 (0.1-1.2) X10*3/uL Eos # (Auto) 0.1 (0.0-0.4) X10*3/uL Baso # (Auto) 0.0 (0.0-0.2) X10*3/uL Abs Immat Gran (auto) 0.05 H (0.00-0.03) X10*3/uL Absolute Neuts (auto) 4.1 (2.0-8.3) x10*3/uL Absolute Nucleated RBC 0.000 (0.0-0.012) X10*3/uL Nucleated RBC % (auto) 0.0 (0.0-0.2) /100WBC Sodium 139 (135-145) mmol/L Potassium 3.8 (3.3-5.1) mmol/L Chloride 107 (96-108) mmol/L Carbon Dioxide 26 (22-29) mmol/L Anion Gap 10 L (12-20) BUN 10 (9-16) mg/dL Creatinine 0.61 (0.5-1.4) mg/dL Estim Creat Clear Calc 99.8 Estimated GFR > 60 Random Glucose 97 (60-115) mg/dL Calcium 9.5 (8.4-10.2) mg/dL Total Bilirubin 0.4 (0.0-1.0) mg/dL Direct Bilirubin < 0.2 (0.0-0.5) mg/dL AST 15 (5-31) U/L ALT 23 (0-31) U/L Alkaline Phosphatase 78 (39-117) U/L Total Protein 6.7 (6.5-8.0) g/dL Albumin 4.0 (3.5-5.0) g/dL Lipase 9 (8-78) U/L Urine Color YELLOW Urine Appearance HAZY Urine pH 5.5 (5.0-8.0) Ur Specific [place] 1.015 (1.005-1.025) Urine Protein NEG (NEG-TRACE) MG/DL Urine Glucose (UA) NEG (NEG) MG/DL Urine Ketones NEG (NEG) MG/DL Urine Blood TRACE (NEG) Urine Nitrite NEG (NEG) Ur Leukocyte Esterase NEG (NEG) Urine RBC 0-2 (0) /HPF Urine WBC 5-9 H (0-4) /HPF Urine WBC Clumps NOTED Ur Squamous Epith Cells 1+ /LPF Urine Bacteria 3+ /LPF Discharge Plan Discharge Clinical Impression: Ovarian cyst, Dysuria Patient Disposition: Home, Self-Care Instructions: Ovarian Cyst (ED), Urinary Tract Infection in Women (DC), Dysuria (ED), Abdominal Pain (ED) Additional Instructions: Tristan tomograf?a computarizada abdominal mostr? un quiste ov?rico, gregorio an?lisis de joy resultaron normales. Por favor, sheila un seguimiento con tristan proveedor de atenci?n primaria. Debido a la disuria y los grumos de gl?bulos blancos y la orina se descargar?n con antibi?ticos y Pyridium. Regrese al servicio de urgencias inmediatamente si tiene sangrado vaginal, flujo vaginal, dolor en el costado, joy en la orina, dolor abdominal intenso, n?useas, v?mitos, dolor en el costado, fiebre, escalofr?os, dolor en el pecho, dificultad para respirar, dolor de jesus o cualquier otro s?ntoma preocupante. Prescriptions: New naproxen 500 mg tablet 500 mg PO BID PRN (Reason: pain) 10 Days Qty: 20 0RF phenazopyridine [Pyridium] 100 mg tablet 200 mg PO TID PRN (Reason: pain) Qty: 6 0RF nitrofurantoin monohyd/m-cryst [Macrobid] 100 mg capsule 100 mg PO Q12H 7 Days Qty: 14 0RF Rx Instructions: must administer with a meal/food No Action metformin 500 mg tablet 500 mg PO DAILY Qty: 90 2RF amlodipine 5 mg tablet 5 mg PO DAILY 30 Days Qty: 30 3RF acetaminophen [Tylenol Arthritis Pain] 650 mg tablet extended release 650 mg PO Q8H PRN (Reason: pain) Qty: 30 0RF nitrofurantoin macrocrystal 50 mg capsule 50 mg PO BEDTIME 30 Days Qty: 30 1RF Rx Instructions: must administer with a meal/food pvxwghyaye-nogsziobcxdmg-yppw 50-325-40 mg tablet 1 tab PO Q6H PRN (Reason: headhace) Qty: 10 0RF Rx Instructions: do not exceed 6 tabs per 24 hrs cyclobenzaprine 10 mg tablet 10 mg PO TID PRN (Reason: muscle spasm) Qty: 10 0RF Citrucel 500 mg tablet 500 mg PO DAILY Qty: 30 2RF Rx Instructions: take it with full glass of water sennosides [Natural Senna Laxative] 8.6 mg tablet 8.6 mg PO BEDTIME Qty: 30 3RF bismuth subsalicylate 262 mg tablet,chewable 2 tab PO QID 14 Days Qty: 112 0RF metronidazole 500 mg tablet 1,000 mg PO BID Qty: 56 0RF tetracycline 500 mg capsule 1,000 mg PO Q12H Qty: 56 0RF pantoprazole 40 mg tablet,delayed release (DR/EC) 40 mg PO DAILY Qty: 60 2RF Rx Instructions: take one tablet half an hour before breakfast and half an hour before dinner Referrals: Rad Freeman PA-C [Primary Care Provider] - (Ovarian cyst as per CT scan) Interventions: ED Discharge Assessment Last Done: 01/18/22 15:58 Discharge Date/Time: 01/18/22 15:59 Print Language: Japanese
[2022-01-18 12:18] LABS: MANUAL DIFF FLAG NO
[2022-01-18 12:19] LABS: Appearance Urine HAZY; Color Urine YELLOW; Glucose Urine UA NEG (NEG); Leukocyte Esterase Urine NEG (NEG); Nitrite Urine NEG (NEG); PH 5.5 (5.0-8.0); Specific Gravity - Urine 1.015 (1.005-1.025); UACC Culture Trigger NO; Urine Blood TRACE (NEG); Urine Ketones NEG (NEG); Urine Protein NEG (NEG-TRACE)
[2022-01-18 12:21] LABS: Basophils Percent Auto 0.6 % (0-2); Eosinophils Absolute Auto 0.1 X10*3/uL (0.0-0.4); Eosinophils Percent Auto 1.1 % (0-4); Hematocrit 39.6 % (37.0-47.0); Hemoglobin 13.3 g/dl (12.0-16.0); Imm Gran Abs Auto 0.05 X10*3/uL (0.00-0.03); Imm Gran Pct Auto 0.8 % (0.0-0.4); Lymphocytes Absolute Auto 1.5 X10*3/uL (1.2-4.9); Lymphocytes Percent Auto 24.3 % (20-40); Mean Corpuscular HGB Conc 33.6 g/dl (31.0-35.0); Mean Corpuscular Hemoglobin 27.3 pg (27.0-33.0); Mean Corpuscular Volume 81.1 fL (80.0-98.0); Mean Platelet Volume 10.8 fL (9.4-12.3); Monocytes Absolute Auto 0.5 X10*3/uL (0.1-1.2); Monocytes Percent Auto 7.8 % (2-11); Neutrophils Absolute Auto 4.1 x10*3/uL (2.0-8.3); Neutrophils Percent Auto 65.4 % (45-73); Platelet Count 330 X10*3/uL (160-400); Red Blood Count 4.88 X10*6/uL (4.20-5.50); Red Cell Distribution Width 14.3 % (11.0-16.0); White Blood Count 6.3 X10*3/uL (4.8-10.8)
[2022-01-18 12:34] LABS: Bacteria Urine 3+ /LPF; RBC Urine 0-2 /HPF (0); Squamous Epithelial Cell Urine 1+ /LPF; UACC CULT YES; WBC Clumps Urine NOTED
[2022-01-18] MEDS: Ketorolac Tromethamine 30 MG/ML VIAL IVPUSH (12:55)
[2022-01-18 14:53] LABS: Alanine Aminotransferase 23 U/L (0-31); Alkaline Phosphatase 78 U/L (39-117); Anion Gap 10 (12-20); Aspartate Amino Transferase 15 U/L (5-31); Bilirubin Direct < 0.2 mg/dL (0.0-0.5); Bilirubin Total 0.4 mg/dL (0.0-1.0); Blood Urea Nitrogen 10 mg/dL (9-16); Calcium 9.5 mg/dL (8.4-10.2); Carbon Dioxide 26 mmol/L (22-29); Chloride 107 mmol/L (96-108); Creatinine Clr Calc Pharmacy 99.8; Estimated Glomerular Filt Rate > 60; Glucose Random 97 mg/dL (60-115); Lipase 9 U/L (8-78); Potassium 3.8 mmol/L (3.3-5.1); Sodium 139 mmol/L (135-145); Total Protein 6.7 g/dL (6.5-8.0)
== END 2022-01-18 15:59 | disposition home or self-care (01) ==
PROVIDERS: Emergency Provider Emergency Medicine; PCP Physician Assistant
DX: R30.0 Dysuria (principal); N83.202 Unspecified ovarian cyst, left side; E11.9 Type 2 diabetes mellitus without complications; I10 Essential (primary) hypertension
CPT/HCPCS: 36415; 74176; 80048; 80076; 81001; 83690; 85025; 87086; 87088; 87186; 96374; 99283; 99284; J1885

== ENCOUNTER 2022-01-26 09:22 | Outpatient (REF) | payer OTHER, SELFPAY ==
[2022-01-26 10:14] LABS: Hematocrit 38.6 % (37.0-47.0); Hemoglobin 12.8 g/dl (12.0-16.0); Mean Corpuscular HGB Conc 33.2 g/dl (31.0-35.0); Mean Corpuscular Hemoglobin 27.2 pg (27.0-33.0); Mean Corpuscular Volume 82.1 fL (80.0-98.0); Mean Platelet Volume 10.9 fL (9.4-12.3); Platelet Count 296 X10*3/uL (160-400); Red Cell Distribution Width 14.6 % (11.0-16.0); White Blood Count 5.5 X10*3/uL (4.8-10.8)
[2022-01-26 10:47] LABS: Appearance Urine CLEAR; Color Urine YELLOW; Glucose Urine UA NEG (NEG); Leukocyte Esterase Urine TRACE (NEG); Nitrite Urine NEG (NEG); Specific Gravity - Urine 1.015 (1.005-1.025); UACC Culture Trigger NO; Urine Blood TRACE (NEG); Urine Ketones NEG (NEG); Urine Protein NEG (NEG-TRACE)
[2022-01-26 11:02] LABS: Alanine Aminotransferase 15 U/L (0-31); Albumin Level 3.7 g/dL (3.5-5.0); Alkaline Phosphatase 77 U/L (39-117); Anion Gap 9 (12-20); Aspartate Amino Transferase 10 U/L (5-31); Bilirubin Total < 0.2 mg/dL (0.0-1.0); Blood Urea Nitrogen 10 mg/dL (9-16); Calcium 9.1 mg/dL (8.4-10.2); Carbon Dioxide 24 mmol/L (22-29); Chloride 108 mmol/L (96-108); Cholesterol 167 mg/dL; Estimated Glomerular Filt Rate > 60; Glucose Fasting 115 mg/dL (60-99); HDL Cholesterol 47 mg/dL; LDL Cholesterol Calculated 100 mg/dl; Lipase 10 U/L (8-78); Potassium 4.1 mmol/L (3.3-5.1); Sodium 137 mmol/L (135-145); Total Protein 6.1 g/dL (6.5-8.0); Triglycerides 102 mg/dL
[2022-01-26 11:03] LABS: Estimated Average Glucose 114 mg/dL; Hemoglobin A1c % 5.6 %
[2022-01-26 11:07] LABS: TSH reflex Free T4 0.79 uIU/mL (0.32-4.0)
[2022-01-26 11:41] LABS: RBC Urine 0-2 /HPF (0); Squamous Epithelial Cell Urine 2+ /LPF; WBC Urine 0-2 /HPF (0-4)
[2022-01-26 11:42] LABS: Bacteria Urine TRACE /LPF
[2022-01-27 21:06] LABS: Transglutaminase Ab IgG <1.0 U/mL; Transglutaminase IgA <1.0 U/mL
== END 2022-01-26 09:23 | disposition home or self-care (01) ==
LOC: HO.LAB 09:22
PROVIDERS: Nurse Practitioner Family; PCP Physician Assistant; Visit Provider Physician Assistant
DX: R10.11 Right upper quadrant pain (principal); R14.0 Abdominal distension (gaseous); I10 Essential (primary) hypertension; R73.09 Other abnormal glucose; R19.7 Diarrhea, unspecified
CPT/HCPCS: 36415; 80053; 80061; 81001; 83036; 83690; 84443; 85027; 86364

== ENCOUNTER 2022-11-09 08:59 | Outpatient (REF) | payer OTHER, SELFPAY ==
[2022-11-09 09:43] LABS: Hematocrit 40.7 % (37.0-47.0); Hemoglobin 13.5 g/dl (12.0-16.0); Mean Corpuscular HGB Conc 33.2 g/dl (31.0-35.0); Mean Corpuscular Hemoglobin 26.4 pg (27.0-33.0); Mean Corpuscular Volume 79.6 fL (80.0-98.0); Mean Platelet Volume 10.8 fL (9.4-12.3); Platelet Count 292 X10*3/uL (160-400); Red Blood Count 5.11 X10*6/uL (4.20-5.50); Red Cell Distribution Width 14.4 % (11.0-16.0); White Blood Count 3.7 X10*3/uL (4.8-10.8)
[2022-11-09 10:36] LABS: Alanine Aminotransferase 21 U/L (0-31); Albumin Level 4.2 g/dL (3.5-5.0); Alkaline Phosphatase 82 U/L (39-117); Anion Gap 13 (12-20); Aspartate Amino Transferase 15 U/L (5-31); Bilirubin Total 0.4 mg/dL (0.0-1.0); Blood Urea Nitrogen 11 mg/dL (9-16); Calcium 9.5 mg/dL (8.4-10.2); Carbon Dioxide 28 mmol/L (22-29); Chloride 104 mmol/L (96-108); Cholesterol 155 mg/dL; Estimated Glomerular Filt Rate > 60; Glucose Fasting 102 mg/dL (60-99); HDL Cholesterol 50 mg/dL; LDL Cholesterol Calculated 89 mg/dl; Sodium 141 mmol/L (135-145); Total Protein 6.6 g/dL (6.5-8.0); Triglycerides 81 mg/dL
[2022-11-09 10:40] LABS: Appearance Urine Cloudy; Color Urine Yellow; Glucose Urine UA Negative (Negative); Leukocyte Esterase Urine Moderate (2+) (Negative); Nitrite Urine Positive (Negative); PH 5.5 (5.0-9.0); Specific Gravity - Urine 1.015 (1.005-1.025); UMIC TRIGGER UACC YES; Urine Blood Trace (Negative); Urine Ketones Negative (Negative); Urine Protein Negative (Neg-Trace)
[2022-11-09 10:46] LABS: Bacteria Urine 4+ (None Seen); Hyaline Casts Urine 0-2 /LPF (0-2); RBC Urine 0-2 /HPF (0-2); Squamous Epithelial Cell Urine 0-2 /HPF (0-2); UACC Culture Trigger YES; WBC Urine 21-50 /HPF (0-5)
[2022-11-09 10:55] LABS: TSH reflex Free T4 0.75 uIU/mL (0.32-4.0)
[2022-11-09 11:19] LABS: Creatinine Urine 95.49 mg/dL
== END 2022-11-09 09:00 | disposition home or self-care (01) ==
LOC: HO.LAB 08:59
PROVIDERS: PCP Physician Assistant; Visit Provider Physician Assistant
DX: R73.09 Other abnormal glucose (principal); I10 Essential (primary) hypertension
CPT/HCPCS: 36415; 80053; 80061; 81001; 82043; 84443; 85027; 87086; 87088; 87186

== ENCOUNTER 2023-10-12 11:50 | Emergency (ER) | payer MEDICAID, SELFPAY ==
--- NOTE | ~2023-10-12 | CT_ITS ---
EXAMINATION: CT ABDOMEN AND PELVIS WITHOUT CONTRAST CLINICAL INFORMATION: Flank pain, hematuria. COMPARISON: None available. TECHNIQUE: Multidetector volumetric imaging was performed from the superior aspect of the liver through the pubic symphysis. Sagittal and coronal reformatted images were obtained on the technologist's workstation. This CT examination was performed using dose optimization techniques as appropriate, variously including the following: *Automated exposure control *Adjustment of mA and/or kV according to patient size (this includes techniques or standardized protocols for targeted exams where dose is matched to indication/reason for exam; i.e. extremities or head) *Use of iterative reconstruction technique DLP: 588 mGy-cm FINDINGS: LUNG BASES: The visualized lung bases are unremarkable. LIVER, GALLBLADDER, AND BILIARY TREE: The liver is normal in size, shape, and attenuation. No focal hepatic lesion or biliary ductal dilatation is present. The gallbladder has been surgically removed. PANCREAS: Unremarkable. SPLEEN: The spleen is unremarkable with a punctate calcification in the splenic hilum likely vascular. ADRENAL GLANDS: Unremarkable. KIDNEYS AND URETERS: The kidneys are normal in size, shape, and attenuation. No hydronephrosis, hydroureter, or calculi seen. No perinephric stranding. There is a 2 cm upper pole and and 3.2 cm midpole simple cyst left kidney. Both the cyst are partially exophytic BLADDER: Unremarkable. GASTROINTESTINAL TRACT: There is moderate stool, gas seen throughout the colon without distention. The small bowel loops are normal caliber. Appendix is not visualized with certainty. The stomach is nondistended. No inflammatory process, free air or free fluid seen in the abdomen or pelvis. ABDOMINAL WALL: No significant hernia is appreciated. LYMPH NODES: Normal. VASCULAR: Unremarkable. PELVIC VISCERA: The uterus is anteverted and appears unremarkable. No free air or free fluid. OSSEOUS STRUCTURES: There is mild ventral spondylosis throughout lumbar spine. No aggressive lytic or sclerotic process. No fracture. Mild degenerative changes bilateral hip joints and SI joints. CT/CT abdomen pelvis wo IV con IMPRESSION: 1. No acute intra-abdominal process seen. 2. No radiopaque urolith or hydroureteronephrosis. 3. Moderate constipation. Fleischner guidelines were followed.
[2023-10-12 12:21] VITALS: BP 144/102; PULSE 101; RESP 20; TEMP 35.9; O2SAT 99; BMI 35.4
--- NOTE | 2023-10-12 12:23 | ED_ITS ---
HPI - Abdominal Pain General Chief Complaint: Abdominal Pain Stated Complaint: Abdominal Pain Back Pain Time Seen by Provider: 10/12/23 17:31 Related Data Previous Rx's Medication Instructions Recorded acetaminophen 650 mg 650 mg PO Q8H PRN pain #30 tabs 06/26/20 tablet,extended release (Tylenol Arthritis Pain) methylcellulose (laxative) 500 mg 500 mg PO DAILY #30 tabs 11/04/21 tablet (Citrucel) sennosides 8.6 mg tablet (Natural 8.6 mg PO BEDTIME constipation #30 11/04/21 Senna Laxative) tabs bismuth subsalicylate 262 mg 2 tab PO QID 14 days #112 tabs 11/08/21 chewable tablet pantoprazole 40 mg tablet,delayed 40 mg PO DAILY #60 tabs 11/08/21 release blood pressure test kit-large #1 ea 01/29/22 cyclobenzaprine 10 mg tablet 10 mg PO TID PRN muscle spasm 15 12/14/22 days #45 tabs meloxicam 15 mg tablet 15 mg PO DAILY 30 days #30 tabs 12/14/22 trimethoprim 100 mg tablet 100 mg PO DAILY 90 days #90 tabs 12/14/22 amlodipine 10 mg tablet 10 mg PO DAILY #90 tabs 08/04/23 metformin 500 mg tablet 500 mg PO DAILY #90 tabs 08/04/23 Allergies Allergy/AdvReac Type Severity Reaction Status Date / Time No Known Allergies Allergy Verified 10/12/23 12:25 [No Known Allergies*] [facility] Past Medical History Surgical History History of cholecystectomy History of kidney removal Family History Family History Sister Heart attack, Onset Age: 50 Mother DMII (diabetes mellitus, type 2) Social History Social History Housing: Apartment Alcohol intake: never Patient Tobacco Use Status: Never used Tobacco e-Cigarette/Vaping Use: Never Used Second Hand Smoke Exposure: No service: No Current occupational status: unemployed Cognitive needs: No Hearing needs: No Vision needs: No Physical Exam ED Vital Signs: Vital Signs - 24 hr 10/12/23 12:21 Temperature 96.7 F L Pulse Rate 101 H Respiratory Rate 20 Blood Pressure 144/102 H Pulse Oximetry 99 Oxygen Delivery Method Room Air BMI result Body Mass Index 35.4 Course Course Course Narrative: This is a rapid medical exam. deferred additional HPI, ROS, PE to primary provider. 58 yo female with history of DM, HTN here with bladder pain, radiation to lower back, dysuria, hematuria x several days Will obtain labs, UA, CT VSS Medical Decision Making Medical Decision Making MDM Narrative: 58 yo female with history of DM, HTN here with bladder pain, radiation to lower back, dysuria, hematuria x several days. No fevers, chills, vomiting, diarrhea, abdominal pain. Lab Data 10/12/23 12:53 10/12/23 12:53 Labs: Lab Results 10/12/23 10/12/23 Range/Units 12:53 12:54 WBC 5.3 (4.8-10.8) X10*3/uL RBC 5.42 (4.20-5.50) X10*6/uL Hgb 14.7 (12.0-16.0) g/dl Hct 42.8 (37.0-47.0) % MCV 79.0 L (80.0-98.0) fL MCH 27.1 (27.0-33.0) pg MCHC 34.3 (31.0-35.0) g/dl RDW 13.8 (11.0-16.0) % Plt Count 347 (160-400) X10*3/uL MPV 10.6 (9.4-12.3) fL Immature Gran % (Auto) 1.1 H (0.0-0.4) % Neut % (Auto) 56.5 (45-73) % Lymph % (Auto) 31.7 (20-40) % [place] % (Auto) 7.9 (2-11) % Eos % (Auto) 1.7 (0-4) % Baso % (Auto) 1.1 (0-2) % Lymph # (Auto) 1.7 (1.2-4.9) X10*3/uL [place] # (Auto) 0.4 (0.1-1.2) X10*3/uL Eos # (Auto) 0.1 (0.0-0.4) X10*3/uL Baso # (Auto) 0.1 (0.0-0.2) X10*3/uL Abs Immat Gran (auto) 0.06 H (0.00-0.03) X10*3/uL Absolute Neuts (auto) 3.0 (2.0-8.3) x10*3/uL Absolute Nucleated RBC 0.000 (0.0-0.012) X10*3/uL Nucleated RBC % (auto) 0.0 (0.0-0.2) /100WBC Sodium 139 (135-145) mmol/L Potassium 3.7 (3.3-5.1) mmol/L Chloride 105 (96-108) mmol/L Carbon Dioxide 25 (22-29) mmol/L Anion Gap 13 (12-20) BUN 12 (9-16) mg/dL Creatinine 0.71 (0.5-1.4) mg/dL Estim Creat Clear Calc 84.1 Estimated GFR > 60 Random Glucose 113 (60-115) mg/dL Calcium 9.8 (8.4-10.2) mg/dL Urine Color Yellow Urine Appearance Clear Urine pH 5.5 (5.0-9.0) Ur Specific [place] 1.015 (1.005-1.025) Urine Protein Negative (Neg-Trace) mg/dL Urine Glucose (UA) Negative (Negative) mg/dL Urine Ketones Negative (Negative) mg/dL Urine Blood Trace H (Negative) Urine Nitrite Positive H (Negative) Ur Leukocyte Esterase Small (1+) H (Negative) Urine RBC 0-2 (0-2) /HPF Urine WBC 21-50 H (0-5) /HPF Ur Squamous Epith Cells 6-10 (0-2) /HPF Urine Bacteria 3+ (None Seen) Hyaline Casts 0-2 (0-2) /LPF Urine Test NEGATIVE (NEGATIVE) Discharge Plan Discharge Clinical Impression: Abdominal pain Patient Disposition: Left W/O Completing Treatment Prescriptions: No Action amlodipine 10 mg tablet 10 mg PO DAILY Qty: 90 2RF metformin 500 mg tablet 500 mg PO DAILY Qty: 90 2RF acetaminophen [Tylenol Arthritis Pain] 650 mg tablet extended release 650 mg PO Q8H PRN (Reason: pain) Qty: 30 0RF (DME) blood pressure test kit-large Kit See Rx Instructions .Route Qty: 1 0RF Rx Instructions: As directed cyclobenzaprine 10 mg tablet 10 mg PO TID PRN (Reason: muscle spasm) 15 Days Qty: 45 0RF meloxicam 15 mg tablet 15 mg PO DAILY 30 Days Qty: 30 1RF trimethoprim 100 mg tablet 100 mg PO DAILY 90 Days Qty: 90 1RF Citrucel 500 mg tablet 500 mg PO DAILY Qty: 30 2RF Rx Instructions: take it with full glass of water sennosides [Natural Senna Laxative] 8.6 mg tablet 8.6 mg PO BEDTIME Qty: 30 3RF bismuth subsalicylate 262 mg tablet,chewable 2 tab PO QID 14 Days Qty: 112 0RF pantoprazole 40 mg tablet,delayed release (DR/EC) 40 mg PO DAILY Qty: 60 2RF Rx Instructions: take one tablet half an hour before breakfast and half an hour before dinner
[2023-10-12 13:00] LABS: MANUAL DIFF FLAG NO
[2023-10-12 13:04] LABS: Basophils Absolute Auto 0.1 X10*3/uL (0.0-0.2); Basophils Percent Auto 1.1 % (0-2); Eosinophils Absolute Auto 0.1 X10*3/uL (0.0-0.4); Eosinophils Percent Auto 1.7 % (0-4); Hematocrit 42.8 % (37.0-47.0); Hemoglobin 14.7 g/dl (12.0-16.0); Imm Gran Abs Auto 0.06 X10*3/uL (0.00-0.03); Imm Gran Pct Auto 1.1 % (0.0-0.4); Lymphocytes Absolute Auto 1.7 X10*3/uL (1.2-4.9); Lymphocytes Percent Auto 31.7 % (20-40); Mean Corpuscular HGB Conc 34.3 g/dl (31.0-35.0); Mean Corpuscular Hemoglobin 27.1 pg (27.0-33.0); Mean Platelet Volume 10.6 fL (9.4-12.3); Monocytes Absolute Auto 0.4 X10*3/uL (0.1-1.2); Monocytes Percent Auto 7.9 % (2-11); Neutrophils Percent Auto 56.5 % (45-73); Platelet Count 347 X10*3/uL (160-400); Red Blood Count 5.42 X10*6/uL (4.20-5.50); Red Cell Distribution Width 13.8 % (11.0-16.0); White Blood Count 5.3 X10*3/uL (4.8-10.8)
[2023-10-12 13:11] LABS: Appearance Urine Clear; Color Urine Yellow; Glucose Urine UA Negative (Negative); Leukocyte Esterase Urine Small (1+) (Negative); Nitrite Urine Positive (Negative); PH 5.5 (5.0-9.0); Specific Gravity - Urine 1.015 (1.005-1.025); UMIC TRIGGER UACC YES; Urine Blood Trace (Negative); Urine Ketones Negative (Negative); Urine Protein Negative (Neg-Trace)
[2023-10-12 13:13] LABS: Bacteria Urine 3+ (None Seen); Hyaline Casts Urine 0-2 /LPF (0-2); RBC Urine 0-2 /HPF (0-2); UACC Culture Trigger YES; WBC Urine 21-50 /HPF (0-5)
[2023-10-12 13:14] LABS: UPreg QC Valid YES; Urine Pregnancy NEGATIVE (NEGATIVE)
[2023-10-12 13:17] LABS: Anion Gap 13 (12-20); Blood Urea Nitrogen 12 mg/dL (9-16); Calcium 9.8 mg/dL (8.4-10.2); Carbon Dioxide 25 mmol/L (22-29); Chloride 105 mmol/L (96-108); Creatinine Clr Calc Pharmacy 84.1; Estimated Glomerular Filt Rate > 60; Glucose Random 113 mg/dL (60-115); Potassium 3.7 mmol/L (3.3-5.1); Sodium 139 mmol/L (135-145)
== END 2023-10-12 21:30 | disposition left against medical advice (07) ==
LOC: HO.ED 21:43
PROVIDERS: Nurse Practitioner Family; Emergency Provider Emergency Medicine; PCP Physician Assistant
DX: R10.9 Unspecified abdominal pain (principal); N39.0 Urinary tract infection, site not specified; B96.20 Unspecified Escherichia coli [E. coli] as the cause of diseases classified elsewhere; E11.9 Type 2 diabetes mellitus without complications; I10 Essential (primary) hypertension; Z79.84 Long term (current) use of oral hypoglycemic drugs; Z79.899 Other long term (current) drug therapy
CPT/HCPCS: 36415; 74176; 80048; 81001; 81003; 81025; 85025; 87086; 87088; 87186; 99282; 99284

== ENCOUNTER 2024-01-12 15:19 | Outpatient (AMB) | payer OTHER, SELFPAY ==
--- NOTE | 2024-01-12 15:54 | MHC.PC.OV ---
Vital Signs 01/12/24 15:55 Height 5 ft Weight 178 lb BMI 34.8 BP 126/76 Blood Pressure Location Lt brachial Position Sitting Pulse 98 Pulse Source Pulse Oximeter Pulse Oximetry (%) 97 Oxygen Delivery Method Room Air Intake Visit Reasons: Medication review. Dialysis Chief Equipment Technician Required: Yes Dialysis Chief Equipment Technician Language: Azerbaijani Accompanied by: Self / Same As Patient Allergies No Known Allergies [No Known Allergies*] Allergy (Verified 01/12/24 16:02) Tobacco use date assessed: 12/14/22 HPI Medication review. HPI Details Patient is a 58-year-old female here today for a follow-up visit.? Patient has a past medical history significant for hypertension,.? Glucose metabolism, obesity, recurrent UTI. concerns-->REports having left knee pain and swelling over the last 3 months. No injury reported to her left knee. Also complaining of bilateral hip and lower back pain. .. HTN: Blood pressure acceptable today in office .? Has not been monitoring blood pressure at home. Otherwise denies any headaches, shortness of breath, chest discomfort or palpitations. ? .. IGM: Most recent fasting blood sugar and A1c are stable.. Continues on metformin 500 b.i.d.. .. [facility] Surgical History History of cholecystectomy History of kidney removal Family History Sister Heart attack, Onset Age: 50 Mother DMII (diabetes mellitus, type 2) Social History Housing: Apartment Alcohol intake: never Patient Tobacco Use Status: Never used Tobacco e-Cigarette/Vaping Use: Never Used Second Hand Smoke Exposure: No service: No Current occupational status: unemployed Cognitive needs: No Hearing needs: No Vision needs: No Questionnaire PHQ-9 Over the last 2 weeks, how often have you been bothered by any of the following problems? 1. Little interest or pleasure in doing things: not at all 2. Feeling down, depressed, or hopeless: not at all 3. Trouble falling or staying asleep, or sleeping too much: not at all 4. Feeling tired or having little energy: not at all 5. Poor appetite or overeating: not at all 6. Feeling bad about yourself - or that you are a failure or have let yourself or your family down: not at all 7. Trouble concentrating on things, such as reading the newspaper or watching television: not at all 8. Moving or speaking so slowly that other people could have noticed. Or the opposite - being so fidgety or restless that you have been moving around a lot more than usual: not at all 9. Thoughts that you would be better off or of hurting yourself in some way: not at all Total score: 0 Depression Screening Interpretation: Negative Depression Screening Done: Yes 39521 - PHQ-9 Billing: Yes Source: Developed by Drs. Adal Cunha, Aleah Chamberlain, Jorge Rolon and colleagues, with an educational georgina from [employer]. Thrive Questionnaire Date Thrive assessed: 01/12/24 I am a: Patient What is your living situation today?: I do not have a steady places to live I am temporarily staying with others (Daughter home) Within the past 12 months, did the food you bought not last and you didn't have the money to get more?: Never true Within the past 12 months, did you worry whether your food would run out before you got money to buy more?: Never true Do you have trouble paying for medicines?: No Do you have trouble getting transportation to medical appointments?: No Do you have trouble paying your heating and electricity bill?: No Do you have trouble taking care of your child, family member or friend?: No Do you have trouble with day-to-day activities such as bathing, preparing meals, shopping, managing finances, etc.?: No Are you currently unemployed and looking for a job?: No Are you interested in more education?: No Please select the resources that you would like help with: Housing/Jail and None Currently or been in a relationship where the following occur: no concerns reported THRIVE Score: 1 AUDIT C Alcohol Use Questionnaire (AUDIT-C) 1. How often do you have a drink containing alcohol?: Never 3. How often do you have six or more drinks on one occasion?: Never Total Score: 0 ANNA-7 AMB Questionnaire ANNA-7 Date ANNA - 7 assessed: 01/12/24 Feeling nervous, anxious, or on edge: 0 = Not at all Not being able to stop or control worryin = Not at all Worrying too much about different things: 0 = Not at all Trouble relaxin = Not at all Being so restless that it is hard to sit still: 0 = Not at all Becoming easily annoyed or irritable: 0 = Not at all Feeling afraid as if something awful might happen: 0 = Not at all Total ANNA-7 score (0-4 normal; 5-9 mild; 10-14 moderate; 15-21 severe): 0 Source: Developed by Drs. Adal Cunha, Aleah Chamberlain, Jorge Rolon and colleagues, with an educational georgina from [employer]. ANNA-7 Assessment Billing ANNA-7 Assessment Tool: ANNA-7 Assessment 71373 Review of Systems Const Denies headache(s) Eyes Denies loss of vision ENT Denies vertigo, Denies dizziness, Denies headache(s) and Denies sore throat Card Denies chest pain, Denies leg edema and Denies lightheadedness Resp Denies cough, Denies hemoptysis and Denies wheezing GI Denies abdominal pain, Denies melena, Denies constipation, Denies diarrhea and Denies vomiting Denies urinary frequency, Denies dysuria and Denies urinary urgency Musc Details: + left medial knee pain Reports back pain, Denies arthralgias, Denies joint swelling, Denies numbness and Denies tingling Neuro Denies Abnormal speech present, Denies behavioral changes, Denies vertigo, Denies dizziness, Denies headache(s), Denies loss of vision, Denies memory loss, Denies numbness and Denies tingling Psych Denies anxiety, Denies behavioral changes, Denies depression, Denies memory loss and Denies panic attacks [place]/Lymph Denies easy bleeding and Denies easy bruising Aller/Immun Denies wheezing Physical exam (Primary Care) Vital Signs: Last Vital Signs Pulse 98 01/12/24 15:55 BP 126/76 01/12/24 15:55 Pulse Ox 97 01/12/24 15:55 Oxygen Delivery Method Room Air 01/12/24 15:55 BMI result Body Mass Index 34.8 Tobacco/Smoking Status: Tobacco use Status Tobacco use date assessed 12/14/22 01/12/24 15:55 Patient Tobacco Use Status Never used Tobacco 01/12/24 15:55 e-Cigarette/Vaping Use Never Used 01/12/24 15:55 PHQ-9: PHQ-9 Score PHQ-9: Total score 0 01/12/24 16:18 Depression Screening Interpretation: Negative Thrive Assessment: Date of Thrive Assessment Date Thrive assessed 01/12/24 01/12/24 16:03 Currently or been in a relationship where the following occur: no concerns reported Const General: healthy appearing, no acute distress, alert and awake Nutritional Appearance: well nourished Orientation/consciousness: oriented to person, oriented to place and oriented to time HENMT Ears: TM's normal bilaterally General nose exam: Normal nasal mucous membranes and turbinates present Eyes Conjunctivae: conjunctivae normal Sclerae: sclerae normal Pupils: Equal, round and reactive pupils present Neck Neck: Yes no lymphadenopathy and Yes no JVD Thyroid: Thyroid normal Carotids: no bruits Resp Effort & Inspection: normal respiratory effort and not tachypneic Auscultation: no crackles, no rales, no rhonchi and no wheezes Cardio Rate: regular rate Rhythm: regular rhythm Heart sounds: no murmurs and normal S1 and S2 GI Palpation (GI): Soft to palpation, nontender, no hepatomegaly and no splenomegaly Auscultation: normal bowel sounds Skin General skin exam: no rashes or lesions noted and dry skin Neuro General: oriented to person, oriented to place and oriented to time Cranial nerves: Yes Equal, round and reactive pupils present Speech: No Abnormal speech present Gait exam (Neuro): Normal gait present Motor exam (neuro): no tremor noted Extrem Right upper extremity: full ROM Left upper extremity: full ROM Right lower extremity: full ROM; no edema Left lower extremity: full ROM; no edema Psych Mental Status: mental status grossly normal Speech and movement: Normal speech and movement present Affect: normal affect Attitude: cooperative Thought process: Normal thought process present Results AMB Hemoglobin A1c AMB Hemoglobin A1c 5.9 % Last Edit by JUMA Mijares on 01/12/24 16:16 Results Reviewed Results Reviewed: Laboratory Last Values Hgb A1c (Clinic) 5.9 % (4.0-6.0) 01/12/24 16:15 Assessment and Plan Assessment & Plan (1) HTN (hypertension): Code(s): I10 - Essential (primary) hypertension Qualifiers: Hypertension type: primary hypertension Qualified Code(s): I10 - Essential (primary) hypertension Plan: Patient's blood pressure acceptable today in office. Will continue her current dose of antihypertensive medication with goal blood pressure be below 140/90 (2) Impaired glucose metabolism: Code(s): R73.09 - Other abnormal glucose Plan: Patient's fasting blood sugar improved, A1c stable. Will continue current dose of metformin. Todays A1c 5.9 (3) Obese: Code(s): E66.9 - Obesity, unspecified Qualifiers: Body mass index: BMI 33.0-33.9 Obesity classification: adult class 1 (BMI 30 - 34.9) Obesity type: due to excess calories Serious obesity comorbidity presence: with serious comorbidity Qualified Code(s): E66.09 - Other obesity due to excess calories; Z68.33 - Body mass index [BMI] 33.0-33.9, adult Plan: Patient does understand her BMI is over 30 and will work on being more physically active and adapting to better eating habits to reduce her weight (4) Left knee pain: Code(s): M25.562 - Pain in left knee Qualifiers: Chronicity: chronic Qualified Code(s): M25.562 - Pain in left knee; G89.29 - Other chronic pain Plan: Has noted knee medial pain. No trauma reported. Physical exam benign. Likely has tendinitis of the MCL. Will likely benefit from physical therapy and patient agrees. (5) Lower back pain: Code(s): M54.50 - Low back pain, unspecified Qualifiers: Back pain laterality: midline Chronicity: chronic Sciatica presence: without sciatica Qualified Code(s): M54.50 - Low back pain, unspecified; G89.29 - Other chronic pain Plan: Continues to have chronic low back pain. Using ibuprofen occasional cyclobenzaprine with only decent relief. Orders: Orders AMB Hemoglobin A1c 01/12/24 R73.09 - Other abnormal glucose XR knee LT 3V 01/12/24 G89.29 - Other chronic pain, M25.562 - Pain in left knee Comprehensive [place]. Panel Fast 01/12/24 R73.09 - Other abnormal glucose Microalbumin, Random (w Creat) 01/12/24 I10 - Essential (primary) hypertension Complete Blood Count no Diff 05/08/24 I10 - Essential (primary) hypertension PT Evaluation and Treatment 01/12/24 G89.29 - Other chronic pain, M25.562 - Pain in left knee Referrals Pain Management Referral G89.29 - Other chronic pain, M54.50 - Low back pain, unspecified Medications: Refilled cyclobenzaprine 10 mg PO TID PRN 45 tabs 0RF muscle spasm 15 days N39.0 - Urinary tract infection, site not specified amlodipine 10 mg PO DAILY 90 tabs 2RF I10 - Essential (primary) hypertension Discontinued cefuroxime axetil Discontinued Reason: Duplicate 250 mg PO BID 7 days 14 tabs 0RF Patient Instructions: Goal: Blood pressure to remain below 140/90 Barriers: Adherence to physical activity and good eating habits. Coding Level of Care Code Est Pt Level 4 (14643) Diagnoses Primary hypertension I10 Hypertension type: primary hypertension Impaired glucose metabolism R73.09 Class 1 obesity due to excess calories with serious comorbidity and body mass index (BMI) of 33.0 to 33.9 in adult E66.09; Z68.33 Body mass index: BMI 33.0-33.9 Obesity classification: adult class 1 (BMI 30 - 34.9) Obesity type: due to excess calories Serious obesity comorbidity presence: with serious comorbidity Chronic pain of left knee M25.562; G89.29 Chronicity: chronic Chronic midline low back pain without sciatica M54.50; G89.29 Back pain laterality: midline Chronicity: chronic Sciatica presence: without sciatica Additional Codes ANNA-7 Assessment Billing - ANNA-7 Assessment Tool: ANNA-7 Assessment 19662 ([id number])
[2024-01-12 15:55] VITALS: BP 126/76; PULSE 98; O2SAT 97; BMI 34.8
== END 2024-01-12 16:33 | disposition home or self-care (01) ==
PROVIDERS: PCP Physician Assistant; Visit Provider Physician Assistant
DX: R73.09 Other abnormal glucose (principal)
CPT/HCPCS: 83036; 99214

== ENCOUNTER 2024-10-02 19:12 | Emergency (ER) | payer OTHER, SELFPAY ==
--- NOTE | ~2024-10-02 | XR_ITS ---
CLINICAL HISTORY: pain, swelling Four views left knee. Findings: There is tricompartmental DJD most severe at the patellofemoral articulation. Joint effusion is present. There is a large loose body in the suprapatellar bursa. There is spurring off the tibial tuberosity. Impression: Tricompartmental DJD with a joint effusion and a large loose body. This document has been electronically signed by: Nikolai Quach MD on 10/02/2024 20:21:45
[2024-10-02 19:19] VITALS: BP 129/80; PULSE 82; RESP 18; TEMP 36.4; O2SAT 95; BMI 32.2
--- NOTE | 2024-10-02 19:24 | ED_ITS ---
HPI - General Adult General Chief complaint: Extremity Problem Stated complaint: left knee pain/swelling no inj Time Seen by Provider: 10/02/24 23:14 Source: patient Limitations: language barrier History of Present Illness ED Provider: Bernice Abarca PA-C HPI narrative: 59-year-old female with history of chronic back pain, morbid obesity, hypertension and recurrent left knee pain, presents with worsening left knee pain x3 days. Patient states she has developed swelling over the knee that is most prominent medially. Denies overuse injury, fall or other trauma. Denies fever. Denies inability to flex or extend the knee. Related Data Previous Rx's ?Medication ?Instructions ?Recorded acetaminophen 650 mg 650 mg PO Q8H PRN pain #30 tabs 06/26/20 tablet,extended release (Tylenol Arthritis Pain) methylcellulose (laxative) 500 mg 500 mg PO DAILY #30 tabs 11/04/21 tablet (Citrucel) sennosides 8.6 mg tablet (Natural 8.6 mg PO BEDTIME constipation #30 11/04/21 Senna Laxative) tabs bismuth subsalicylate 262 mg 2 tab PO QID 14 days #112 tabs 11/08/21 chewable tablet pantoprazole 40 mg tablet,delayed 40 mg PO DAILY #60 tabs 11/08/21 release blood pressure test kit-large #1 ea 01/29/22 meloxicam 15 mg tablet 15 mg PO DAILY 30 days #30 tabs 12/14/22 trimethoprim 100 mg tablet 100 mg PO DAILY 90 days #90 tabs 12/14/22 metformin 500 mg tablet 500 mg PO DAILY #90 tabs 08/04/23 amlodipine 10 mg tablet 10 mg PO DAILY #90 tabs 01/12/24 cyclobenzaprine 10 mg tablet 10 mg PO TID PRN muscle spasm 15 01/12/24 days #45 tabs meloxicam 15 mg tablet 15 mg PO DAILY #7 tabs 10/03/24 Allergies Allergy/AdvReac Type Severity Reaction Status Date / Time No Known Allergies Allergy Verified 10/02/24 19:24 [No Known Allergies*] Review of Systems 2 Review of Systems: Yes all other systems are reviewed and are negative Constitutional: Constitutional: Denies fatigue and Denies fever(s) Musculoskeletal: Musculoskeletal: Reports arthralgias and Reports joint swelling Endocrine: Endocrine: Denies fatigue PMFSH Past Medical History Attestation statement: The following information was validated with the patient. Surgical History History of cholecystectomy History of kidney removal Family History Family History Sister Heart attack, Onset Age: 50 Mother DMII (diabetes mellitus, type 2) Social History Social History Housing: Apartment Alcohol intake: never Patient Tobacco Use Status: Never used Tobacco e-Cigarette/Vaping Use: Never Used Second Hand Smoke Exposure: No Do you have a plan to hurt others: No Plan service: No Current occupational status: unemployed Cognitive needs: No Hearing needs: No Vision needs: No Physical Exam ED Vital Signs: Vital Signs - 24 hr 10/02/24 19:19 Temperature 97.6 F Pulse Rate 82 Respiratory Rate 18 Blood Pressure 129/80 Pulse Oximetry 95 Oxygen Delivery Method Room Air BMI result Body Mass Index 32.2 Const Other: Alert Orientation/consciousness: patient oriented x3 Resp Effort & Inspection: normal respiratory effort Cardio Other: Normal peripheral perfusion Skin Other: Warm dry no rash Neuro Other: Antalgic gait General: patient oriented x3, no focal motor deficits and CN's II-XI intact bilaterally Extrem Other: The left knee is mildly warm and erythematous, however she has retained flexion and extension of the knee and is ambulatory, no downstream swelling Psych Other: Calm cooperative Course Course Course Narrative: RME performed by Natali Pinon PA-C. Patient is a 59 year old assigned female at presenting to the emergency department with left knee pain. Patient states that over the last few days she has had left knee pain and swelling and this has never happened before. Detailed physical exam and review of systems are deferred to the fuels sales representative. Labs and imaging ordered. Patient placed back in the waiting room pending room availability and results. Medications Administered Discontinued Medications Generic Name Dose Route Start Last Admin Trade Name Freq PRN Reason Stop Dose Admin Ketorolac Tromethamine 15 mg 10/02/24 23:35 10/03/24 00:10 Ketorolac Tromethamine 15 Mg/Ml Vial IM 10/02/24 23:36 15 mg ONCE ONE Administration Medical Decision Making Medical Decision Making [facility] Narrative: 59-year-old female with history of chronic back pain, morbid obesity, hypertension and recurrent left knee pain, presents with worsening left knee pain x3 days. Patient states she has developed swelling over the knee that is most prominent medially. Denies overuse injury, fall or other trauma. Denies fever. Denies inability to flex or extend the knee. Problem: Chronic knee pain History: Per patient I have considered the following differential diagnoses: Fracture, dislocation, sprain, septic effusion, DVT Plan: X-ray and labs were obtained from triage, she has a joint effusion with loose bodies, she has significant arthritic changes. She needs to see an orthopedist. This is not a septic joint, she is afebrile without leukocytosis, inflammatory markers are minimally elevated, and she has retained range of motion. Do not believe she requires DVT studies, there was no downstream swelling from the knee which is the focal point of the edema I have independently reviewed the following tests: Labs: No leukocytosis, not anemic, CRP elevated, ESR is not, no electrolyte abnormalities X-ray left knee:indings: There is tricompartmental DJD most severe at the patellofemoral articulation. Joint effusion is present. There is a large loose body in the suprapatellar bursa. There is spurring off the tibial tuberosity. Impression: Tricompartmental DJD with a joint effusion and a large loose body. This document has been electronically signed by: Nikolai Quach MD on 10/02/2024 20:21:45 Lab Data 10/02/24 19:33 10/02/24 19:33 Labs: Lab Results 10/02/24 10/02/24 Range/Units 19:32 19:33 WBC 6.3 (4.8-10.8) X10*3/uL RBC 5.30 (4.20-5.50) X10*6/uL Hgb 14.3 (12.0-16.0) g/dl Hct 41.7 (37.0-47.0) % MCV 78.7 L (80.0-98.0) fL MCH 27.0 (27.0-33.0) pg MCHC 34.3 (31.0-35.0) g/dl RDW 14.0 (11.0-16.0) % Plt Count 297 (160-400) X10*3/uL MPV 10.6 (9.4-12.3) fL Immature Gran % (Auto) 0.6 H (0.0-0.4) % Neut % (Auto) 55.3 (45-73) % Lymph % (Auto) 32.9 (20-40) % [place] % (Auto) 8.7 (2-11) % Eos % (Auto) 1.7 (0-4) % Baso % (Auto) 0.8 (0-2) % Lymph # (Auto) 2.1 (1.2-4.9) X10*3/uL [place] # (Auto) 0.6 (0.1-1.2) X10*3/uL Eos # (Auto) 0.1 (0.0-0.4) X10*3/uL Baso # (Auto) 0.1 (0.0-0.2) X10*3/uL Abs Immat Gran (auto) 0.04 H (0.00-0.03) X10*3/uL Absolute Neuts (auto) 3.5 (2.0-8.3) x10*3/uL Absolute Nucleated RBC 0.000 (0.0-0.012) X10*3/uL Nucleated RBC % (auto) 0.0 (0.0-0.2) /100WBC ESR 7 (0-20) MM/HR Sodium 142 (135-145) mmol/L Potassium 3.8 (3.3-5.1) mmol/L Chloride 107 (96-108) mmol/L Carbon Dioxide 27 (22-29) mmol/L Anion Gap 12 (12-20) BUN 15 (9-16) mg/dL Creatinine 0.87 (0.5-1.4) mg/dL Estim Creat Clear Calc 64.4 Estimated GFR > 60 Random Glucose 98 (60-115) mg/dL Calcium 9.2 D (8.4-10.2) mg/dL Magnesium 2.1 (1.6-2.6) mg/dL Total Bilirubin 0.3 (0.0-1.0) mg/dL AST < 6 (5-31) U/L ALT 21 (0-31) U/L Alkaline Phosphatase 138 H (39-117) U/L C-Reactive Protein 1.58 H (< or = 0.50) mg/dL Total Protein 7.9 (6.5-8.0) g/dL Albumin 4.3 (3.5-5.0) g/dL Discharge Plan Discharge Clinical Impression: Arthritis of knee, left, Effusion of knee joint, left Patient Disposition: Home, Self-Care Instructions: Osteoarthritis (ED), Swollen Knee Joint (ED) Additional Instructions: You were found to have considerable arthritic changes within the knee causing the swelling and pain. See home care instructions. You should use a compression sleeve to support the joint. The compression sleeve can be purchased at any store including a pharmacy or [employer]. In addition, use the anti-inflammatory, the meloxicam, as directed for the discomfort. While resting, elevate the leg. You need to follow up with our orthopedic service, you may be a candidate for a cortisone injection into the knee joint, to help with the inflammation. You may also require additional intervention at some point. I am providing you with a contact. Follow up with your primary care provider as needed. Prescriptions: New meloxicam 15 mg tablet 15 mg PO DAILY Qty: 7 0RF No Action metformin 500 mg tablet 500 mg PO DAILY Qty: 90 2RF acetaminophen [Tylenol Arthritis Pain] 650 mg tablet extended release 650 mg PO Q8H PRN (Reason: pain) Qty: 30 0RF (DME) blood pressure test kit-large Kit See Rx Instructions .Route Qty: 1 0RF Rx Instructions: As directed meloxicam 15 mg tablet 15 mg PO DAILY 30 Days Qty: 30 1RF trimethoprim 100 mg tablet 100 mg PO DAILY 90 Days Qty: 90 1RF cyclobenzaprine 10 mg tablet 10 mg PO TID PRN (Reason: muscle spasm) 15 Days Qty: 45 0RF amlodipine 10 mg tablet 10 mg PO DAILY Qty: 90 2RF Citrucel 500 mg tablet 500 mg PO DAILY Qty: 30 2RF Rx Instructions: take it with full glass of water sennosides [Natural Senna Laxative] 8.6 mg tablet 8.6 mg PO BEDTIME Qty: 30 3RF bismuth subsalicylate 262 mg tablet,chewable 2 tab PO QID 14 Days Qty: 112 0RF pantoprazole 40 mg tablet,delayed release (DR/EC) 40 mg PO DAILY Qty: 60 2RF Rx Instructions: take one tablet half an hour before breakfast and half an hour before dinner Referrals: Damon Rincon MD [Physician] - (Left knee, Tricompartmental DJD with a joint effusion and a large loose body.) Print Language: [place]
[2024-10-02 19:37] LABS: MANUAL DIFF FLAG NO
[2024-10-02 19:41] LABS: Basophils Absolute Auto 0.1 X10*3/uL (0.0-0.2); Basophils Percent Auto 0.8 % (0-2); Eosinophils Absolute Auto 0.1 X10*3/uL (0.0-0.4); Eosinophils Percent Auto 1.7 % (0-4); Hematocrit 41.7 % (37.0-47.0); Hemoglobin 14.3 g/dl (12.0-16.0); Imm Gran Abs Auto 0.04 X10*3/uL (0.00-0.03); Imm Gran Pct Auto 0.6 % (0.0-0.4); Lymphocytes Absolute Auto 2.1 X10*3/uL (1.2-4.9); Lymphocytes Percent Auto 32.9 % (20-40); Mean Corpuscular HGB Conc 34.3 g/dl (31.0-35.0); Mean Corpuscular Volume 78.7 fL (80.0-98.0); Mean Platelet Volume 10.6 fL (9.4-12.3); Monocytes Absolute Auto 0.6 X10*3/uL (0.1-1.2); Monocytes Percent Auto 8.7 % (2-11); Neutrophils Absolute Auto 3.5 x10*3/uL (2.0-8.3); Neutrophils Percent Auto 55.3 % (45-73); Platelet Count 297 X10*3/uL (160-400); White Blood Count 6.3 X10*3/uL (4.8-10.8)
[2024-10-02 20:03] LABS: Alanine Aminotransferase 21 U/L (0-31); Albumin Level 4.3 g/dL (3.5-5.0); Alkaline Phosphatase 138 U/L (39-117); Anion Gap 12 (12-20); Aspartate Amino Transferase < 6 U/L (5-31); Bilirubin Total 0.3 mg/dL (0.0-1.0); Blood Urea Nitrogen 15 mg/dL (9-16); C Reactive Protein 1.58 mg/dL (< or = 0.50); Calcium 9.2 mg/dL (8.4-10.2); Carbon Dioxide 27 mmol/L (22-29); Chloride 107 mmol/L (96-108); Creatinine Clr Calc Pharmacy 64.4; Estimated Glomerular Filt Rate > 60; Glucose Random 98 mg/dL (60-115); Magnesium 2.1 mg/dL (1.6-2.6); Potassium 3.8 mmol/L (3.3-5.1); Sodium 142 mmol/L (135-145); Total Protein 7.9 g/dL (6.5-8.0)
[2024-10-02 20:17] LABS: Erythrocyte Sedimentation Rate 7 MM/HR (0-20)
[2024-10-03] MEDS: Ketorolac Tromethamine 15 MG/ML VIAL IM (00:10)
[2024-10-03 01:14] VITALS: BP 00/00; PULSE 0; RESP 0; TEMP -17.7; TEMP 0
== END 2024-10-03 01:32 | disposition home or self-care (01) ==
LOC: HO.ED 10-03 01:33
PROVIDERS: Physician Assistant Medical; Emergency Provider Emergency Medicine; PCP Physician Assistant
DX: M17.12 Unilateral primary osteoarthritis, left knee (principal); M25.462 Effusion, left knee; M25.562 Pain in left knee; I10 Essential (primary) hypertension; Z79.899 Other long term (current) drug therapy
CPT/HCPCS: 36415; 73562; 80053; 83735; 85025; 85652; 86140; 96372; 99283; 99284; J1885

== ENCOUNTER → 2024-10-02 19:24 | Outpatient (BNV) | payer OTHER, SELFPAY | PROVIDERS: PCP Physician Assistant; Visit Provider Radiology Diagnostic Radiology | DX: M25.562 Pain in left knee (principal) | CPT/HCPCS: 73562 ==

== ENCOUNTER 2024-11-20 11:08 | Outpatient (REF) | payer OTHER, SELFPAY | END 2024-11-20 11:09 | disposition home or self-care (01) | LOC: HO.HOSX 11:08 | PROVIDERS: Visit Provider Physician Assistant | DX: Z13.89 Encounter for screening for other disorder (principal) ==

== ENCOUNTER 2025-04-11 21:47 | Emergency (ER) | payer MEDICAID, SELFPAY ==
[2025-04-11 21:52] VITALS: BP 156/108; BP 164/91; PULSE 17; PULSE 90; RESP 18; TEMP 36.2; O2SAT 98; BMI 32.2
[2025-04-11 22:19] LABS: MANUAL DIFF FLAG NO
[2025-04-11 22:21] LABS: Hematocrit 42.0 % (37.0-47.0); Hemoglobin 14.7 g/dl (12.0-16.0); Imm Gran Abs Auto 0.05 X10*3/uL (0.00-0.03); Imm Gran Pct Auto 0.9 % (0.0-0.4); Lymphocytes Absolute Auto 1.8 X10*3/uL (1.2-4.9); Mean Corpuscular HGB Conc 35.0 g/dl (31.0-35.0); Mean Corpuscular Hemoglobin 26.8 pg (27.0-33.0); Mean Corpuscular Volume 76.5 fL (80.0-98.0); NRBC Abs Auto 0.000 X10*3/uL (0.0-0.012); NRBC Pct Auto 0.0 /100WBC (0.0-0.2); Platelet Count 287 X10*3/uL (160-400); Red Blood Count 5.49 X10*6/uL (4.20-5.50); White Blood Count 5.8 X10*3/uL (4.8-10.8)
[2025-04-11 22:34] LABS: Alanine Aminotransferase 25 U/L (0-31); Albumin Level 4.6 g/dL (3.5-5.0); Alkaline Phosphatase 132 U/L (39-117); Anion Gap 15 (12-20); Aspartate Amino Transferase 22 U/L (5-31); Blood Urea Nitrogen 19 mg/dL (9-16); Calcium 9.4 mg/dL (8.4-10.2); Carbon Dioxide 26 mmol/L (22-29); Chloride 107 mmol/L (96-108); Creatinine Clr Calc Pharmacy 84.9; Estimated Glomerular Filt Rate > 60; Potassium 3.5 mmol/L (3.3-5.1); Sodium 144 mmol/L (135-145); Total Protein 7.6 g/dL (6.5-8.0)
[2025-04-11 23:56] VITALS: BP 147/80; PULSE 71; RESP 18; TEMP 36.7; O2SAT 97
[2025-04-12 02:26] LABS: Appearance Urine Clear; Glucose Urine UA Negative (Negative); PH 5.5 (5.0-9.0); Specific Gravity - Urine 1.015 (1.005-1.025); UMIC TRIGGER UACC YES
[2025-04-12 02:28] LABS: UACC Culture Trigger YES
--- NOTE | 2025-04-12 03:03 | ED.DENTAL ---
HPI - Dental/Oral General Chief complaint: Dental/Oral Stated complaint: Tooth infection, took antibiotics now N/V Time Seen by Provider: 04/12/25 02:21 Source: patient Mode of arrival: ambulatory Limitations: language barrier (Consulting Services Project Manager services utilized) History of Present Illness ED Provider: Migue RICE HPI Narrative: The patient is a 59-year-old female presenting to the ED reporting since yesterday she has been experiencing pain in her left bottom molar which has been cracked for some time. The patient reports today she took ibuprofen and then went to the store to purchase [id number] ampicillin at a local supermarket which she took and subsequently developed recurrent nausea, vomiting, and left upper quadrant abdominal pain. The patient denies associated fever/chills, chest pain, shortness of breath, hematemesis, constipation, diarrhea, hematochezia, melena, or urinary symptoms. Patient reported intermittent dysuria for the past 2-3 months while in triage, however denies any active dysuria since symptoms began. The patient has not recently seen a dentist. Related Data Previous Rx's ?Medication ?Instructions ?Recorded acetaminophen 650 mg 650 mg PO Q8H PRN pain #30 tabs 06/26/20 tablet,extended release (Tylenol Arthritis Pain) methylcellulose (laxative) 500 mg 500 mg PO DAILY #30 tabs 11/04/21 tablet (Citrucel) sennosides 8.6 mg tablet (Natural 8.6 mg PO BEDTIME constipation #30 11/04/21 Senna Laxative) tabs bismuth subsalicylate 262 mg 2 tab PO QID 14 days #112 tabs 11/08/21 chewable tablet pantoprazole 40 mg tablet,delayed 40 mg PO DAILY #60 tabs 11/08/21 release blood pressure test kit-large #1 ea 01/29/22 meloxicam 15 mg tablet 15 mg PO DAILY 30 days #30 tabs 12/14/22 trimethoprim 100 mg tablet 100 mg PO DAILY 90 days #90 tabs 12/14/22 metformin 500 mg tablet 500 mg PO DAILY #90 tabs 08/04/23 amlodipine 10 mg tablet 10 mg PO DAILY #90 tabs 01/12/24 cyclobenzaprine 10 mg tablet 10 mg PO TID PRN muscle spasm 15 01/12/24 days #45 tabs meloxicam 15 mg tablet 15 mg PO DAILY #7 tabs 10/03/24 acetaminophen 500 mg capsule 1,000 mg (2 x 500 mg) PO .q8 PRN 04/12/25 fever or pain #30 caps amoxicillin 875 mg-potassium 1 tab PO BID #14 tabs 04/12/25 clavulanate 125 mg tablet ibuprofen 600 mg tablet 600 mg PO Q8H PRN fever or pain 04/12/25 #30 tabs Allergies Allergy/AdvReac Type Severity Reaction Status Date / Time No Known Allergies (No Known Allergy Verified 04/11/25 21:53 Allergies*) Review of Systems Review of Systems: Yes all other systems are reviewed and are negative PMFSH Past Medical History Surgical History History of cholecystectomy History of kidney removal Family History Family History Sister Heart attack, Onset Age: 50 Mother DMII (diabetes mellitus, type 2) Social History Social History Housing: Apartment Alcohol intake: never Patient Tobacco Use Status: Never used Tobacco e-Cigarette/Vaping Use: Never Used Second Hand Smoke Exposure: No Advance Directives: No Advance Directives Information Provided: Yes Do you have a plan to hurt others: No Plan service: No Current occupational status: unemployed Cognitive needs: No Hearing needs: No Vision needs: No Physical Exam Exam: Exam: CONSTITUTIONAL: The patient appears non-toxic, well nourished and in no acute distress. Vital signs as documented. HEAD: Atraumatic, normocephalic. EYES: EOMs grossly intact, pupils equal, conjunctiva clear, no exudate. ENT: Nares patent, no discharge. Airway patent, no audible stridor, visible mucosa is pink and moist without noted lesions. There are diffuse dental caries noted, with a fractured tooth which appears old, noted in the left mandible, no visible drainable abscess. NECK: trachea is midline, no obvious masses or gross abnormalities. CHEST: Symmetric movement, normal appearance. LUNGS: Non-labored work of breathing. CARDIAC: No evidence of hypoperfusion. ABDOMEN: Abdomen is soft and nontender x4 quadrants, negative rebound, negative guarding. No palpable masses or organomegaly. : Deferred. EXTREMITIES: Moves all extremities spontaneously without reported pain. No obvious injury or deformity noted. NEURO: Alert and oriented x3, CN II-XII appear grossly intact. Cerebellar Functioning grossly intact. Speech clear and appropriate. SKIN: Warm, dry, color appropriate. No rashes or lesions noted. Vital Signs: Vital Signs: Last Vital Signs Temp 98.0 F 04/11/25 23:56 Pulse 71 04/11/25 23:56 Resp 18 04/11/25 23:56 BP 147/80 H 04/11/25 23:56 Pulse Ox 97 04/11/25 23:56 O2 Del Method Room Air 04/11/25 23:56 BMI result Body Mass Index 32.2 Medications Administered Discontinued Medications Generic Name Dose Route Start Last Admin Trade Name Freq PRN Reason Stop Dose Admin Ondansetron HCl 4 mg 04/11/25 22:03 04/11/25 22:05 Ondansetron Odt 4 Mg Tab.Rapdis TRANSLINGU 04/11/25 22:04 4 mg ONCE ONE Administration Medical Decision Making Medical Decision Making MDM Narrative: 3:07 AM 04/12/2025 (Tati RICE): The patient is a 59-year-old female presenting to the ED for evaluation of dental pain with subsequent nausea, vomiting, and left upper quadrant abdominal pain after ingesting a [id number] pill/tablet of ampicillin she purchased at a local grocery store. Patient's abdominal exam is benign, no point tenderness. Patient's laboratory evaluation is markedly reassuring, no leukocytosis, anemia, electrolyte abnormality, or RILEY. No LFT abnormality noted. The patient's urinalysis does show trace blood, small leukocyte esterase, and 11-20 WBCs with 4+ bacteria. Negative for nitrites. Patient has had multiple previous urinalysis performed which showed larger WBCs and positive nitrites. Patient's urinalysis today is not indicative of UTI especially in the absence of active symptoms. The patient's abdominal pain and vomiting is likely secondary to her ingestion of the OTC antibiotic. Patient will be treated with a GI cocktail, Zofran, and we will initiate Augmentin. Patient has been educated on the need for outpatient follow up with dentist for definitive care of her dental pain. Patient has been instructed to avoid use of non prescribed antibiotics in the future. Lab Data [facility] Lab Attestation statement: I reviewed the patient's lab results. 04/11/25 22:14 04/11/25 22:14 Labs: Lab Results 04/11/25 04/12/25 Range/Units 22:14 02:15 WBC 5.8 (4.8-10.8) X10*3/uL RBC 5.49 (4.20-5.50) X10*6/uL Hgb 14.7 (12.0-16.0) g/dl Hct 42.0 (37.0-47.0) % MCV 76.5 L (80.0-98.0) fL MCH 26.8 L (27.0-33.0) pg MCHC 35.0 (31.0-35.0) g/dl RDW 14.7 (11.0-16.0) % Plt Count 287 (160-400) X10*3/uL MPV 10.4 (9.4-12.3) fL Immature Gran % (Auto) 0.9 H (0.0-0.4) % Neut % (Auto) 58.9 (45-73) % Lymph % (Auto) 30.5 (20-40) % [place] % (Auto) 7.7 (2-11) % Eos % (Auto) 1.0 (0-4) % Baso % (Auto) 1.0 (0-2) % Lymph # (Auto) 1.8 (1.2-4.9) X10*3/uL [place] # (Auto) 0.5 (0.1-1.2) X10*3/uL Eos # (Auto) 0.1 (0.0-0.4) X10*3/uL Baso # (Auto) 0.1 (0.0-0.2) X10*3/uL Abs Immat Gran (auto) 0.05 H (0.00-0.03) X10*3/uL Absolute Neuts (auto) 3.4 (2.0-8.3) x10*3/uL Absolute Nucleated RBC 0.000 (0.0-0.012) X10*3/uL Nucleated RBC % (auto) 0.0 (0.0-0.2) /100WBC Sodium 144 (135-145) mmol/L Potassium 3.5 (3.3-5.1) mmol/L Chloride 107 (96-108) mmol/L Carbon Dioxide 26 (22-29) mmol/L Anion Gap 15 (12-20) BUN 19 H (9-16) mg/dL Creatinine 0.66 (0.5-1.4) mg/dL Estim Creat Clear Calc 84.9 Estimated GFR > 60 Random Glucose 142 H (60-115) mg/dL Calcium 9.4 (8.4-10.2) mg/dL Total Bilirubin 0.2 (0.0-1.0) mg/dL AST 22 (5-31) U/L ALT 25 (0-31) U/L Alkaline Phosphatase 132 H (39-117) U/L Total Protein 7.6 (6.5-8.0) g/dL Albumin 4.6 (3.5-5.0) g/dL Urine Color Yellow Urine Appearance Clear Urine pH 5.5 (5.0-9.0) Ur Specific [place] 1.015 (1.005-1.025) Urine Protein Trace (Neg-Trace) mg/dL Urine Glucose (UA) Negative (Negative) mg/dL Urine Ketones Negative (Negative) mg/dL Urine Blood Trace H (Negative) Urine Nitrite Negative (Negative) Ur Leukocyte Esterase Small (1+) H (Negative) Urine RBC 0-2 (0-2) /HPF Urine WBC 11-20 H (0-5) /HPF Ur Squamous Epith Cells 0-2 (0-2) /HPF Urine Bacteria 4+ (None Seen) Hyaline Casts 0-2 (0-2) /LPF Discharge Plan Discharge Clinical Impression: Dental caries Patient Disposition: Home, Self-Care Instructions: Acute Nausea and Vomiting (ED), Toothache (ED) Additional Instructions: Thank you for choosing [facility]'s Emergency Department for your care today. Thankfully your laboratory evaluation and exam today is reassuring. At this time there is no indication for admission to the hospital or continued ED observation, and it is safe to discharge you home. Your abdominal discomfort and vomiting is likely due to your use of a non prescribed antibiotic. Please stop taking this non prescribed antibiotic and begin taking Augmentin as prescribed until it is finished. It is extremely important that you follow up with a dentist for definitive care of your dental pain. You may take alternating (staggered) doses of ibuprofen 600mg and Tylenol 1000mg every 4 hours as needed for any additional pain. Please stay well hydrated and get plenty of rest. Please also follow up with your primary care physician for re-evaluation, additional management of your symptoms, and continued preventative care. If you do not have a primary care physician, please call the [facility] at [phone] to establish a new primary care physician. While waiting to establish your new primary care physician, you can call our [facility] at [phone] for non-emergency needs. Please return to the emergency department if you develop a severe or sudden change in your symptoms, a fever over 100.4 that does not improve with Tylenol or Ibuprofen, recurrent vomiting, or any other new or worsening symptoms or concerns. Prescriptions: New ibuprofen 600 mg tablet 600 mg PO Q8H PRN (Reason: fever or pain) Qty: 30 0RF acetaminophen 500 mg capsule 1,000 mg PO .q8 PRN (Reason: fever or pain) Qty: 30 0RF amoxicillin-pot clavulanate 875-125 mg tablet 1 tab PO BID Qty: 14 0RF No Action metformin 500 mg tablet 500 mg PO DAILY Qty: 90 2RF acetaminophen [Tylenol Arthritis Pain] 650 mg tablet extended release 650 mg PO Q8H PRN (Reason: pain) Qty: 30 0RF meloxicam 15 mg tablet 15 mg PO DAILY Qty: 7 0RF (DME) blood pressure test kit-large Kit See Rx Instructions .Route Qty: 1 0RF Rx Instructions: As directed meloxicam 15 mg tablet 15 mg PO DAILY 30 Days Qty: 30 1RF trimethoprim 100 mg tablet 100 mg PO DAILY 90 Days Qty: 90 1RF cyclobenzaprine 10 mg tablet 10 mg PO TID PRN (Reason: muscle spasm) 15 Days Qty: 45 0RF amlodipine 10 mg tablet 10 mg PO DAILY Qty: 90 2RF Citrucel 500 mg tablet 500 mg PO DAILY Qty: 30 2RF Rx Instructions: take it with full glass of water sennosides [Natural Senna Laxative] 8.6 mg tablet 8.6 mg PO BEDTIME Qty: 30 3RF bismuth subsalicylate 262 mg tablet,chewable 2 tab PO QID 14 Days Qty: 112 0RF pantoprazole 40 mg tablet,delayed release (DR/EC) 40 mg PO DAILY Qty: 60 2RF Rx Instructions: take one tablet half an hour before breakfast and half an hour before dinner Print Language: Samoan
[2025-04-12 03:04] VITALS: BP 139/78; PULSE 61; RESP 18; TEMP 36.4; O2SAT 95
[2025-04-12 03:29] VITALS: BP 139/78; PULSE 61; RESP 18; TEMP 36.4; O2SAT 95
--- NOTE | 2025-04-12 03:32 | PC.NURSE ---
pt D/C orders in, pending staff medical records assistant in order to medicate and D/C pt
[2025-04-12] MEDS: Lidocaine HCl Viscous 2 % 15 ML SOLUTION PO (03:34)
[2025-04-12] MEDS: Magnesium Hydrox/Alum Hydrox 30 ML ORAL.SUSP PO (03:34)
--- NOTE | 2025-04-12 03:41 | PC.NURSE ---
staff medical device sales representative at the bedside, pt medicated per NOV, D/C instructions verbalized
== END 2025-04-12 03:44 | disposition home or self-care (01) ==
PROVIDERS: Emergency Provider Emergency Medicine
DX: K03.81 Cracked tooth (principal); R11.2 Nausea with vomiting, unspecified; R10.12 Left upper quadrant pain
CPT/HCPCS: 36415; 80053; 81001; 85025; 87086; 87088; 87186; 99283

== ENCOUNTER 2025-06-25 11:46 | Emergency (ER) | payer OTHER, SELFPAY ==
[2025-06-25 13:13] VITALS: BP 139/90; PULSE 79; RESP 18; TEMP 36.8; O2SAT 97; BMI 33.0
--- NOTE | 2025-06-25 13:14 | ED.GENADULT ---
HPI - General Adult General Chief complaint: Abdominal Pain Stated complaint: belly pain to back and leg pain Time Seen by Provider: 06/25/25 16:58 Source: patient, RN notes reviewed, old records reviewed and hand counter Mode of arrival: ambulatory Limitations: language barrier History of Present Illness ED Provider: Roel HPI narrative: 60-year-old female presents for evaluation of lower abdominal pain, flank pain and burning with urination. She has a history of UTIs in his feels similar. Denies any fevers or chills pain The symptoms started 4 days ago Denies any vaginal bleeding or discharge Related Data Previous Rx's ?Medication ?Instructions ?Recorded acetaminophen 650 mg 650 mg PO Q8H PRN pain #30 tabs 06/26/20 tablet,extended release (Tylenol Arthritis Pain) methylcellulose (laxative) 500 mg 500 mg PO DAILY #30 tabs 11/04/21 tablet (Citrucel) sennosides 8.6 mg tablet (Natural 8.6 mg PO BEDTIME constipation #30 11/04/21 Senna Laxative) tabs bismuth subsalicylate 262 mg 2 tab PO QID 14 days #112 tabs 11/08/21 chewable tablet pantoprazole 40 mg tablet,delayed 40 mg PO DAILY #60 tabs 11/08/21 release blood pressure test kit-large #1 ea 01/29/22 meloxicam 15 mg tablet 15 mg PO DAILY 30 days #30 tabs 12/14/22 trimethoprim 100 mg tablet 100 mg PO DAILY 90 days #90 tabs 12/14/22 metformin 500 mg tablet 500 mg PO DAILY #90 tabs 08/04/23 amlodipine 10 mg tablet 10 mg PO DAILY #90 tabs 01/12/24 cyclobenzaprine 10 mg tablet 10 mg PO TID PRN muscle spasm 15 01/12/24 days #45 tabs meloxicam 15 mg tablet 15 mg PO DAILY #7 tabs 10/03/24 acetaminophen 500 mg capsule 1,000 mg (2 x 500 mg) PO .q8 PRN 04/12/25 fever or pain #30 caps amoxicillin 875 mg-potassium 1 tab PO BID #14 tabs 04/12/25 clavulanate 125 mg tablet ibuprofen 600 mg tablet 600 mg PO Q8H PRN fever or pain 04/12/25 #30 tabs cefpodoxime 100 mg tablet 100 mg PO BID 7 days #14 tabs 04/17/25 cefuroxime axetil 500 mg tablet 500 mg PO Q12H #10 tabs 06/25/25 phenazopyridine 200 mg tablet 200 mg PO TID PRN pain 6 doses #6 06/25/25 (Pyridium) tabs Allergies Allergy/AdvReac Type Severity Reaction Status Date / Time No Known Allergies (No Known Allergy Verified 06/25/25 13:16 Allergies*) Review of Systems Constitutional: Constitutional: Denies body ache(s), Denies chills, Denies fever(s), Denies frequent falls and Denies headache(s) Eyes: Eyes: Denies blurry vision ENT: Denies vertigo, Denies dizziness and Denies headache(s) Cardiovascular: Cardiovascular: Denies chest pain and Denies dyspnea on exertion Respiratory: Respiratory: Denies cough and Denies dyspnea on exertion Gastrointestinal: Gastrointestinal: Reports abdominal pain and Denies nausea Genitourinary: Genitourinary: Denies hematuria, Reports dysuria, Reports pelvic pain, Reports flank pain and Denies vaginal discharge Musculoskeletal: Musculoskeletal: Reports back pain Neurologic: Denies vertigo, Denies dizziness, Denies frequent falls and Denies headache(s) [facility] Past Medical History Surgical History History of cholecystectomy History of kidney removal Family History Family History Sister Heart attack, Onset Age: 50 Mother DMII (diabetes mellitus, type 2) Social History Social History Housing: Apartment Alcohol intake: never Patient Tobacco Use Status: Never used Tobacco e-Cigarette/Vaping Use: Never Used Second Hand Smoke Exposure: No Advance Directives: No Advance Directives Information Provided: Yes service: No Current occupational status: unemployed Cognitive needs: No Hearing needs: No Vision needs: No Physical Exam ED Vital Signs: Vital Signs - 24 hr 06/25/25 13:13 Temperature 98.3 F Pulse Rate 79 Respiratory Rate 18 Blood Pressure 139/90 H Pulse Oximetry 97 BMI result Body Mass Index 33.0 Const General: healthy appearing, comfortable, no acute distress, alert and awake Nutritional Appearance: well nourished Orientation/consciousness: patient oriented x3 HENMT Head: Yes normocephalic and Yes atraumatic Eyes Eyelids: Yes eyelids normal Conjunctivae: conjunctivae normal Sclerae: sclerae normal Corneas: corneas normal Pupils: Equal, round and reactive pupils present EOM: EOMs intact bilaterally Neck Neck: Yes full ROM Resp Effort & Inspection: normal respiratory effort, able to speak in complete sentences and not labored GI Inspection: No distended Palpation (GI): Soft to palpation, not firm, nontender, no guarding and not rigid Skin General skin exam: elasticity normal Neuro General: patient oriented x3 Cranial nerves: Yes Equal, round and reactive pupils present and Yes Bilaterally intact EOM present Cognition (Neuro): normal cognition Extrem Other: Moving all extremities well without any obvious deformities Course Course Course Narrative: RME, this is a rapid medical exam performed by Toño Sevilla please refer to primary provider for complete H&P- 60-year-old female presents for evaluation of abdominal pain. Plan for labs, urinalysis Medical Decision Making Medical Decision Making [facility] Narrative: 60-year-old female presents for evaluation of UTI symptoms. Her labs are reassuring, no evidence of systemic infection, her urinalysis positive for a UTI with 4+ bacteria white blood cells 6-10 and only a few squamous epithelial cells. There is also positive leukocyte esterase. We will treat with cefuroxime b.i.d. x7 days Differential Diagnosis Differential Diagnoses: The differential diagnosis associated with the presentation includes UTI Cystitis Pyelonephritis Pelvic Lab Data [facility] Lab Attestation statement: I reviewed the patient's lab results. No leukocytosis or anemia. Normal platelet count. No significant electrolyte abnormalities warranting dimension. Urinalysis consistent with a UTI 06/25/25 14:06 06/25/25 14:06 Labs: Lab Results 06/25/25 Range/Units 14:06 WBC 5.0 (4.8-10.8) X10*3/uL RBC 5.81 H (4.20-5.50) X10*6/uL Hgb 15.2 (12.0-16.0) g/dl Hct 45.7 (37.0-47.0) % MCV 78.7 L (80.0-98.0) fL MCH 26.2 L (27.0-33.0) pg MCHC 33.3 (31.0-35.0) g/dl RDW 14.4 (11.0-16.0) % Plt Count 316 (160-400) X10*3/uL MPV 10.4 (9.4-12.3) fL Immature Gran % (Auto) 0.6 H (0.0-0.4) % Neut % (Auto) 63.3 (45-73) % Lymph % (Auto) 27.9 (20-40) % [place] % (Auto) 5.6 (2-11) % Eos % (Auto) 1.8 (0-4) % Baso % (Auto) 0.8 (0-2) % Lymph # (Auto) 1.4 (1.2-4.9) X10*3/uL [place] # (Auto) 0.3 (0.1-1.2) X10*3/uL Eos # (Auto) 0.1 (0.0-0.4) X10*3/uL Baso # (Auto) 0.0 (0.0-0.2) X10*3/uL Abs Immat Gran (auto) 0.03 (0.00-0.03) X10*3/uL Absolute Neuts (auto) 3.2 (2.0-8.3) x10*3/uL Absolute Nucleated RBC 0.000 (0.0-0.012) X10*3/uL Nucleated RBC % (auto) 0.0 (0.0-0.2) /100WBC Sodium 140 (135-145) mmol/L Potassium 4.0 (3.3-5.1) mmol/L Chloride 104 (96-108) mmol/L Carbon Dioxide 28 (22-29) mmol/L Anion Gap 12 (12-20) BUN 11 (9-16) mg/dL Creatinine 0.62 (0.5-1.4) mg/dL Estim Creat Clear Calc 90.4 Estimated GFR > 60 Random Glucose 123 H (60-115) mg/dL Calcium 10.1 D (8.4-10.2) mg/dL Total Bilirubin 0.2 (0.0-1.0) mg/dL AST 18 (5-31) U/L ALT 29 (0-31) U/L Alkaline Phosphatase 124 H (39-117) U/L Total Protein 7.6 (6.5-8.0) g/dL Albumin 4.8 (3.5-5.0) g/dL Lipase 13 (8-78) U/L Urine Color Yellow Urine Appearance Clear Urine pH 5.5 (5.0-9.0) Ur Specific [place] 1.015 (1.005-1.025) Urine Protein Negative (Neg-Trace) mg/dL Urine Glucose (UA) Negative (Negative) mg/dL Urine Ketones Negative (Negative) mg/dL Urine Blood Negative (Negative) Urine Nitrite Negative (Negative) Ur Leukocyte Esterase Small (1+) H (Negative) Urine RBC 0-2 (0-2) /HPF Urine WBC 6-10 H (0-5) /HPF Ur Squamous Epith Cells 6-10 (0-2) /HPF Urine Bacteria 4+ (None Seen) Hyaline Casts 0-2 (0-2) /LPF Discharge Plan Discharge Clinical Impression: Urinary tract infection Patient Disposition: Home, Self-Care Instructions: Urinary Tract Infection in Women (ED) Additional Instructions: Your workup showed that you have a UTI which is likely causing all your symptoms. This does not appear to be a systemic infection. Take the antibiotic twice daily for 1 week. Drink lots of fluids pain Follow up with your primary doctor, return for new or worsening symptoms Prescriptions: New cefuroxime axetil 500 mg tablet 500 mg PO Q12H Qty: 10 0RF phenazopyridine [Pyridium] 200 mg tablet 200 mg PO TID PRN (Reason: pain) Qty: 6 0RF No Action metformin 500 mg tablet 500 mg PO DAILY Qty: 90 2RF acetaminophen [Tylenol Arthritis Pain] 650 mg tablet extended release 650 mg PO Q8H PRN (Reason: pain) Qty: 30 0RF meloxicam 15 mg tablet 15 mg PO DAILY Qty: 7 0RF ibuprofen 600 mg tablet 600 mg PO Q8H PRN (Reason: fever or pain) Qty: 30 0RF acetaminophen 500 mg capsule 1,000 mg PO .q8 PRN (Reason: fever or pain) Qty: 30 0RF amoxicillin-pot clavulanate 875-125 mg tablet 1 tab PO BID Qty: 14 0RF cefpodoxime 100 mg tablet 100 mg PO BID 7 Days Qty: 14 0RF Rx Instructions: must administer with a meal/food (DME) blood pressure test kit-large Kit See Rx Instructions .Route Qty: 1 0RF Rx Instructions: As directed meloxicam 15 mg tablet 15 mg PO DAILY 30 Days Qty: 30 1RF trimethoprim 100 mg tablet 100 mg PO DAILY 90 Days Qty: 90 1RF cyclobenzaprine 10 mg tablet 10 mg PO TID PRN (Reason: muscle spasm) 15 Days Qty: 45 0RF amlodipine 10 mg tablet 10 mg PO DAILY Qty: 90 2RF Citrucel 500 mg tablet 500 mg PO DAILY Qty: 30 2RF Rx Instructions: take it with full glass of water sennosides [Natural Senna Laxative] 8.6 mg tablet 8.6 mg PO BEDTIME Qty: 30 3RF bismuth subsalicylate 262 mg tablet,chewable 2 tab PO QID 14 Days Qty: 112 0RF pantoprazole 40 mg tablet,delayed release (DR/EC) 40 mg PO DAILY Qty: 60 2RF Rx Instructions: take one tablet half an hour before breakfast and half an hour before dinner Print Language: Romanian
[2025-06-25 14:12] LABS: MANUAL DIFF FLAG NO
[2025-06-25 14:16] LABS: Appearance Urine Clear; Glucose Urine UA Negative (Negative); PH 5.5 (5.0-9.0); Specific Gravity - Urine 1.015 (1.005-1.025); UMIC TRIGGER UACC YES
[2025-06-25 14:17] LABS: Hematocrit 45.7 % (37.0-47.0); Hemoglobin 15.2 g/dl (12.0-16.0); Imm Gran Abs Auto 0.03 X10*3/uL (0.00-0.03); Imm Gran Pct Auto 0.6 % (0.0-0.4); Lymphocytes Absolute Auto 1.4 X10*3/uL (1.2-4.9); Mean Corpuscular HGB Conc 33.3 g/dl (31.0-35.0); Mean Corpuscular Hemoglobin 26.2 pg (27.0-33.0); Mean Corpuscular Volume 78.7 fL (80.0-98.0); NRBC Abs Auto 0.000 X10*3/uL (0.0-0.012); NRBC Pct Auto 0.0 /100WBC (0.0-0.2); Platelet Count 316 X10*3/uL (160-400); Red Blood Count 5.81 X10*6/uL (4.20-5.50); White Blood Count 5.0 X10*3/uL (4.8-10.8)
[2025-06-25 14:18] LABS: UACC Culture Trigger YES
[2025-06-25 14:37] LABS: Alanine Aminotransferase 29 U/L (0-31); Albumin Level 4.8 g/dL (3.5-5.0); Alkaline Phosphatase 124 U/L (39-117); Anion Gap 12 (12-20); Aspartate Amino Transferase 18 U/L (5-31); Blood Urea Nitrogen 11 mg/dL (9-16); Calcium 10.1 mg/dL (8.4-10.2); Carbon Dioxide 28 mmol/L (22-29); Chloride 104 mmol/L (96-108); Creatinine Clr Calc Pharmacy 90.4; Estimated Glomerular Filt Rate > 60; Lipase 13 U/L (8-78); Potassium 4.0 mmol/L (3.3-5.1); Sodium 140 mmol/L (135-145); Total Protein 7.6 g/dL (6.5-8.0)
== END 2025-06-25 17:50 | disposition home or self-care (01) ==
PROVIDERS: Physician Assistant; Emergency Provider Student in an Organized Health Care Education/Training Program; PCP Physician Assistant
DX: N39.0 Urinary tract infection, site not specified (principal); R30.9 Painful micturition, unspecified; R10.9 Unspecified abdominal pain; M54.9 Dorsalgia, unspecified
CPT/HCPCS: 36415; 80053; 81001; 83690; 85025; 87086; 87088; 87186; 99282; 99283